=== PATIENT | female | born 1930 | race Caucasian/White ===

== ENCOUNTER 2017-05-29 20:24 | Emergency (ER) | payer OTHER, MEDICARE ==
[~2017-05-29] VITALS: Ht 160 cm; Wt 55.2 kg
[~2017-05-29 20:24] MED LIST: ALBU1AER INH; ALPR.25 PO; BENZ100 PO; CEFT500T3 PO; FAMO20TA2 PO; GABA100C4 PO; METR-1 PO; OXYGENTANK NAS.CANULA; POTA-163 PO; PROBCAP4 PO; PROT40TA PO; REST0.05 EACH EYE; RIVA10 PO; STOO100C PO; SYNT125T PO
[2017-05-29 20:27] VITALS: BP 147/64; PULSE 56; RESP 20; TEMP 98; O2SAT 95
[2017-05-29] MEDS ORDERED: LEVO.125 PO (20:47)
[2017-05-29] MEDS ORDERED: HYDR-4107 PO (20:47)
[2017-05-29] MEDS ORDERED: POTA-53 PO (20:47)
[2017-05-29] MEDS ORDERED: GABA300C5 PO (20:47)
[2017-05-29] MEDS ORDERED: PROT40TA PO (20:47)
[2017-05-29] MEDS ORDERED: ASPI81CH37 CHEW (20:47)
[2017-05-29] MEDS ORDERED: CALC500T35 (20:47)
[2017-05-29] MEDS ORDERED: FURO20TA PO (20:47)
[2017-05-29] MEDS ORDERED: CITA20TA4 PO (20:47)
[2017-05-29] MEDS ORDERED: AZIT250T3 PO (20:49)
[2017-05-29] MEDS ORDERED: LIDOCAINE HCL 1% PF 2 ML VIAL ONE (20:52)
[2017-05-29] MEDS ORDERED: LIDOCAINE HCL 1% PF 30 ML VIAL ONE (20:56)
--- NOTE | 2017-05-29 20:58 | PD ---
HPI Chief Complaint: Bite or Sting Time Seen by Provider: 20:49 Travel History International Travel<30 days: No Contact w/Intl Traveler<30days: No Traveled to known affect area: No History of Present Illness HPI 86-year-old female presents to the emergency room for evaluation of a laceration to her right fifth finger that occurred 7 hours prior to arrival. Patient was scratched by her pet cat. She applied a pressure dressing but the bleeding would not stop. She takes baby aspirin daily. She believes her last tetanus was less than one year ago when she got a hip replacement. PFSH Past Medical History Hx Anticoagulant Therapy: Yes (ASA) Arthritis: Yes Atrial Fibrillation: Yes Autoimmune Disease: No Blood Disorders: No Anxiety: Yes Heart Rhythm Problems: Yes (AFIB) Cancer: Yes (hx of ovarian cancer) Cardiac Catheterization: No Cardiovascular Problems: Yes High Cholesterol: Yes Chest Pain: Yes Congestive Heart Failure: Yes COPD: Yes Cerebrovascular Accident: No Diabetes: No Diminished Hearing: No Endocrine: Yes Gastrointestinal Disorders: Yes (H/O ACID REFLUX) GERD: Yes Genitourinary: No Headaches: Yes Hypertension: Yes Immune Disorder: No Implanted Vascular Access Dvce: Yes Medical other: Yes (PROLAPSED RECTUM) Musculoskeletal: Yes Neurologic: Yes Psychiatric: Yes Reproductive: Yes Respiratory: Yes Immunizations Current: Yes Thyroid Disease: Yes Triglycerides - High: Yes Menopausal: Yes Past Surgical History Body Medical Devices: lens implants Cholecystectomy: Yes Coronary Artery Bypass Graft: No Endocrine Surgery: Yes Eye Surgery: Yes (cathy cataract surgery) Gynecologic Surgery: Yes (hysterectomy, ) Hysterectomy: Yes Other Surgery: Yes Social History Alcohol Use: No Tobacco Use: No Substance Use: No Allergies-Medications (Allergen,Severity, Reaction): Coded Allergies: Codeine (Verified Allergy, Severe, NAUSEA, 05/29/17) Dilaudid (Verified Allergy, Severe, Itching, 05/29/17) Sulfa (Verified Allergy, Severe, EYE SWELLING, 05/29/17) *MDRO Multi-Drug Resistant Organism (Verified Adverse Reaction, Unknown, ) 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 Reported Meds & Prescriptions Reported Meds & Active Scripts Active Azithromycin 250 Mg Tab 250 Mg PO DAILY Xanax (Alprazolam) 0.25 Mg Tab 0.25 Mg PO HS Reported Hydrocodone-Acetaminophen 5-300 Mg Tab 1 Tab PO Q4H PRN Potassium Chloride 1 Pow Pow 10 Meq PO THREE TIMES A WEEK Furosemide 20 Mg Tab 20 Mg PO 3 TIMES WEEKLY Gabapentin 300 Mg Cap 300 Mg PO HS Calcium (Oyster Shell) 500 Mg Tab Unknown Dose BID Citalopram (Citalopram Hydrobromide) 20 Mg Tab 20 Mg PO DAILY Synthroid (Levothyroxine Sodium) 125 Mcg Tab 125 Mcg PO DAILY Aspirin Low Dose (Aspirin) 81 Mg Chew 81 Mg CHEW DAILY Protonix (Pantoprazole Sodium) 40 Mg Tab 40 Mg PO DAILY Review of Systems Except as stated in HPI: all other systems reviewed are Neg Physical Exam Narrative GENERAL: Well-nourished, well-developed female in no acute distress. Afebrile. Ambulatory. SKIN: Focused skin assessment warm/dry. There is a 1.5 cm well approximated laceration to the right fifth finger over the pulp space. There is a superficial vessel bleeding consistently. HEAD: Normocephalic. EYES: No scleral icterus. No injection or drainage. NECK: Supple, trachea midline. No JVD or lymphadenopathy. CARDIOVASCULAR: Regular rate and rhythm without murmurs, gallops, or rubs. RESPIRATORY: Breath sounds equal bilaterally. No accessory muscle use. MUSCULOSKELETAL: No cyanosis, or edema. Data Data Last Documented VS Vital Signs Date Time Temp Pulse Resp B/P Pulse Ox O2 Delivery O2 Flow Rate FiO2 05/29/17 20:27 98.0 56 20 147/64 95 Orders Azithromycin (Zithromax) (05/29/17 21:00) Lidocaine Pf 1% Inj (Xylocaine-Mpf 1% In (05/29/17 20:52) Lidocaine Pf 1% Inj (Xylocaine-Mpf 1% In (05/29/17 20:56) MDM Medical Decision Making Medical Screen Exam Complete: Yes Emergency Medical Condition: Yes Medical Record Reviewed: Yes Differential Diagnosis laceration, cat scratch fever, abrasion, skin tear Narrative Course 86-year-old female presents to the emergency room for evaluation of a cat scratch to the right fifth finger. There is 1.5 cm well-approximated laceration to the right fifth finger that is persistently bleeding. The wound was thoroughly irrigated and it loosely repaired with sutures to control bleeding but allow for infection to exit the wound. The remainder of the wound was left open. Patient was given 500 mg azithromycin in the emergency room and discharged with prescription for the same. She was told to follow up with her primary care physician or return for worsening symptoms. She understands and agrees to plan.. Procedures Procedure Narrative LACERATION LOCATION: Right fifth finger LENGTH: 1.5 cm NUMBER OF STITCHES/KITTY: 2 simple interrupted, 2 simple interrupted buried REPAIR: The area of the laceration was prepped with Betadine and sterilely draped. The laceration was infiltrated with 1% lidocaine with epinephrine. The wound was copiously irrigated and explored without evidence of foreign body , tendon injury or neurovascular injury. The wound was closed using 5-0 Vicryl and 5-0 Prolene. This was a double layer repair. A sterile dressing was applied. The patient was advised to keep the dressing clean and dry. Patient tolerated the procedure well. Diagnosis Primary Impression: Laceration of right little finger Qualified Code: S61.216A - Laceration of right little finger without foreign body without damage to nail, initial encounter Referrals: Primary Care Physician Patient Instructions: Finger Laceration (ED), General Instructions Additional Instructions: Rest and drink plenty of fluids. Keep wound clean and dry. Apply triple antibiotic ointment daily. Take azithromycin as directed, until gone. Follow-up with a primary care physician. Return to the emergency room for worsening symptoms. Med/Other Pt SpecificInfo: Prescription(s) given Scripts Azithromycin 250 Mg [id number] Mg PO DAILY #4 TAB Ref 0 Prov:Dania Stroud DO 05/29/17 Disposition: 01 DISCHARGE HOME Condition: Stable Suha Brunner May 29, 2017 20:58
[2017-05-29] MEDS ORDERED: AZITHROMYCIN 250 MG TAB PO ONE (21:00)
[2017-05-29] MEDS ORDERED: LIDOCAINE HCL 1% PF 30 ML VIAL INFIL ONE (21:45)
== END 2017-05-29 21:50 | disposition home or self-care (01) ==
LOC: PHEFT 20:24
DX: S61.216A Laceration without foreign body of right little finger without damage to nail, initial encounter (principal); W55.03XA Scratched by cat, initial encounter
CPT/HCPCS: 12041

== ENCOUNTER 2017-07-28 20:25 | Observation (INO) | payer OTHER ==
[~2017-07-28] VITALS: Ht 157.5 cm; Wt 55.0 kg
[~2017-07-28 20:25] MED LIST changes: -ALBU1AER INH; +ASPI81CH37 CHEW; +AZIT250T3 PO; -BENZ100 PO; +CALC500T35; -CEFT500T3 PO; +CITA20TA4 PO; -FAMO20TA2 PO; +FURO20TA PO; -GABA100C4 PO; +GABA300C5 PO; +HYDR-4107 PO; +LEVO.125 PO; -METR-1 PO; -OXYGENTANK NAS.CANULA; -POTA-163 PO; +POTA-53 PO; -PROBCAP4 PO; -REST0.05 EACH EYE; -RIVA10 PO; -STOO100C PO; -SYNT125T PO
[2017-07-28 20:31] VITALS: BP 159/58; PULSE 92; RESP 22; TEMP 100; O2SAT 97
--- NOTE | 2017-07-28 20:41 | PD ---
HPI Chief Complaint: Fever Time Seen by Provider: 20:36 Travel History International Travel<30 days: No Contact w/Intl Traveler<30days: No Traveled to known affect area: No History of Present Illness HPI 87-year-old female brought in by ambulance from home for evaluation of fever, lower back pain, bilateral flank pain, and epigastric abdominal pain. Symptoms started today. The patient felt nauseous and was given IV Zofran by EMS with improvement in symptoms. History of appendectomy and cholecystectomy. Currently she is denying abdominal pain. No chest pain. PFSH Past Medical History Hx Anticoagulant Therapy: Yes (ASA) Arthritis: Yes Atrial Fibrillation: Yes Autoimmune Disease: No Blood Disorders: No Anxiety: Yes Heart Rhythm Problems: Yes (AFIB) Cancer: Yes (hx of ovarian cancer) Cardiac Catheterization: No Cardiovascular Problems: Yes High Cholesterol: Yes Chest Pain: Yes Congestive Heart Failure: Yes COPD: Yes Cerebrovascular Accident: No Diabetes: No Diminished Hearing: No Endocrine: Yes Gastrointestinal Disorders: Yes (H/O ACID REFLUX) GERD: Yes Genitourinary: No Headaches: Yes Hypertension: Yes Immune Disorder: No Implanted Vascular Access Dvce: Yes Musculoskeletal: Yes Neurologic: Yes Psychiatric: Yes Reproductive: Yes Respiratory: Yes Immunizations Current: Yes Thyroid Disease: Yes Triglycerides - High: Yes ?: Not Menopausal: Yes Past Surgical History Body Medical Devices: lens implants Cholecystectomy: Yes Coronary Artery Bypass Graft: No Endocrine Surgery: Yes Eye Surgery: Yes (cathy cataract surgery) Gynecologic Surgery: Yes (hysterectomy, ) Hysterectomy: Yes Other Surgery: Yes Social History Alcohol Use: No Tobacco Use: No Substance Use: No Allergies-Medications (Allergen,Severity, Reaction): Coded Allergies: Sulfa (Sulfonamide Antibiotics) (Unverified Allergy, Severe, EYE SWELLING , 07/08/17) codeine (Unverified Allergy, Severe, NAUSEA, 07/08/17) hydromorphone (Unverified Allergy, Severe, Itching, 07/08/17) *MDRO Multi-Drug Resistant Organism (Verified Adverse Reaction, Unknown, ) 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 Reported Meds & Prescriptions Reported Meds & Active Scripts Active Azithromycin 250 Mg Tab 250 Mg PO DAILY Xanax (Alprazolam) 0.25 Mg Tab 0.25 Mg PO HS Reported Hydrocodone-Acetaminophen 5-300 Mg Tab 1 Tab PO Q4H PRN Potassium Chloride 1 Pow Pow 10 Meq PO THREE TIMES A WEEK Furosemide 20 Mg Tab 20 Mg PO 3 TIMES WEEKLY Gabapentin 300 Mg Cap 300 Mg PO HS Calcium (Oyster Shell) 500 Mg Tab Unknown Dose BID Citalopram (Citalopram Hydrobromide) 20 Mg Tab 20 Mg PO DAILY Synthroid (Levothyroxine Sodium) 125 Mcg Tab 125 Mcg PO DAILY Aspirin Low Dose (Aspirin) 81 Mg Chew 81 Mg CHEW DAILY Protonix (Pantoprazole Sodium) 40 Mg Tab 40 Mg PO DAILY Review of Systems Except as stated in HPI: all other systems reviewed are Neg Physical Exam Narrative GENERAL: Well-developed, well-nourished, awake, alert, no apparent distress. SKIN: Focused skin assessment warm/dry. No rashes. HEAD: Atraumatic. Normocephalic. EYES: Pupils equal and round. No scleral icterus. No injection or drainage. ENT: Mucous membranes pink and moist. NECK: Trachea midline. No JVD. No nuchal rigidity. CARDIOVASCULAR: Regular rate and rhythm. No murmur appreciated. RESPIRATORY: No accessory muscle use. Clear to auscultation. Breath sounds equal bilaterally. GASTROINTESTINAL: Abdomen soft, non-tender, nondistended. MUSCULOSKELETAL: No obvious deformities. No clubbing. No cyanosis. No edema. NEUROLOGICAL: Awake and alert. No obvious cranial nerve deficits. Motor grossly within normal limits. Normal speech. PSYCHIATRIC: Appropriate mood and affect; insight and judgment normal. Data Data Last Documented VS Vital Signs Date Time Temp Pulse Resp B/P (MAP) Pulse Ox O2 Delivery O2 Flow Rate FiO2 07/29/17 00:03 98.3 62 20 101/49 (66) 98 Nasal Cannula 2.00 Orders Orders Electrocardiogram (07/28/17 20:36) Complete Blood Count With Diff (07/28/17 20:36) Comprehensive Metabolic Panel (07/28/17 20:36) Lactic Acid Sepsis Protocol (07/28/17 20:36) Ckmb (Isoenzyme) Profile (07/28/17 20:36) Troponin I (07/28/17 20:36) Urinalysis - C+S If Indicated (07/28/17 20:36) Blood Culture (07/28/17 20:36) Chest, Single Ap (07/28/17 20:36) Ecg Monitoring (07/28/17 20:36) Iv Access Insert/Monitor (07/28/17 20:36) Oximetry (07/28/17 20:36) Acetaminophen (Tylenol) (07/28/17 20:45) Ct Abd/Pel W Iv Contrast(Rout) (07/28/17 20:36) Lipase (07/28/17 20:36) Iohexol 350 Inj (Omnipaque 350 Inj) (07/28/17 23:16) Piperacil-Tazo 3.375 Gm Premix (Zosyn 3. (07/28/17 23:45) Labs Laboratory Tests Test 07/28/17 20:35 07/28/17 20:49 White Blood Count 6.2 TH/MM3 Red Blood Count 3.54 MIL/MM3 Hemoglobin 10.7 GM/DL Hematocrit 32.6 % Mean Corpuscular Volume 92.2 FL Mean Corpuscular Hemoglobin 30.2 PG Mean Corpuscular Hemoglobin Concent 32.7 % Red Cell Distribution Width 14.1 % Platelet Count 154 TH/MM3 Mean Platelet Volume 7.0 FL Neutrophils (%) (Auto) 90.3 % Lymphocytes (%) (Auto) 3.3 % Monocytes (%) (Auto) 5.8 % Eosinophils (%) (Auto) 0.3 % Basophils (%) (Auto) 0.3 % Neutrophils # (Auto) 5.6 TH/MM3 Lymphocytes # (Auto) 0.2 TH/MM3 Monocytes # (Auto) 0.4 TH/MM3 Eosinophils # (Auto) 0.0 TH/MM3 Basophils # (Auto) 0.0 TH/MM3 CBC Comment DIFF FINAL Differential Comment Blood Urea Nitrogen 16 MG/DL Creatinine 0.82 MG/DL Random Glucose 98 MG/DL Total Protein 6.0 GM/DL Albumin 2.9 GM/DL Calcium Level 8.1 MG/DL Alkaline Phosphatase 268 U/L Aspartate Amino Transf (AST/SGOT) 215 U/L Alanine Aminotransferase (ALT/SGPT) 255 U/L Total Bilirubin 2.3 MG/DL Sodium Level 143 MEQ/L Potassium Level 3.1 MEQ/L Chloride Level 109 MEQ/L Carbon Dioxide Level 25.5 MEQ/L Anion Gap 9 MEQ/L Estimat Glomerular Filtration Rate 66 ML/MIN Lactic Acid Level 1.5 mmol/L Total Creatine Kinase 30 U/L Troponin I LESS THAN 0.02 NG/ML Lipase 196 U/L Urine Color YELLOW Urine Turbidity CLEAR Urine pH 6.5 Urine Specific [place] 1.021 Urine Protein TRACE mg/dL Urine Glucose (UA) NEG mg/dL Urine Ketones TRACE mg/dL Urine Occult Blood SMALL Urine Nitrite NEG Urine Bilirubin NEG Urine Urobilinogen 2.0 MG/DL Urine Leukocyte Esterase NEG Urine RBC 10 /hpf Urine WBC 1 /hpf Urine Squamous Epithelial Cells <1 /hpf Urine Mucus FEW /lpf Microscopic Urinalysis Comment CATH-CULT NOT IND MDM Medical Decision Making Medical Screen Exam Complete: Yes Emergency Medical Condition: Yes Medical Record Reviewed: Yes Differential Diagnosis Sepsis, UTI, pyelonephritis, colitis, intra-abdominal infectious process, pneumonia, ACS Narrative Course Vital signs show heart rate 92, blood pressure 159/58, pulse ox 97% on room air , oral temp of 100F. CBC shows WBC 6.2, hemoglobin 10.7, hematocrit 32.6, platelets 154, neutrophils 90.3%. CMP is remarkable for potassium 3.1, T bili 2.3, AST 2:15, ALT 255, alkaline phosphatase 268. Lactic acid is 1.5. Lipase is 196. Cardiac enzymes are negative. UA is not suggestive of UTI. CT abdomen pelvis: CONCLUSION: 1. Status post cholecystectomy with prominent extrahepatic and mild intrahepatic ductal dilatation extending to the ampulla. Although post cholecystectomy reservoir effect may result in some extrahepatic ductal dilatation, overall degree of ductal prominence is atypical. Further evaluation may be performed with ERCP or MRCP as clinically warranted. 2. Prominent sigmoid diverticulosis with subtle perisigmoid inflammatory change , likely chronic. Differential considerations include developing diverticulitis. No abscess or perforation. 3. Small fat-containing periumbilical hernia with subtle stranding of the fat. Clinical correlation for strangulated hernia is recommended. Patient does have fever. She likely has an ascending cholangitis given CT findings, elevated LFTs, elevated bilirubin. She was started on Zosyn. She will be admitted for further treatment and evaluation. Case discussed with hospitalist Dr. White who will admit the patient to his service for further treatment and evaluation and likely GI consultation. Diagnosis Primary Impression: Biliary obstruction Additional Impressions: Hyperbilirubinemia Transaminitis Admitting Information Admitting Physician Requests: Admit Allen Ratliff MD Jul 28, 2017 20:41
[2017-07-28] MEDS ORDERED: ACETAMINOPHEN 325 MG TAB PO ONE (20:45)
[2017-07-28 20:53] VITALS: O2SAT 97
[2017-07-28 21:26] LABS: AUTOMATED NEUTROPHIL # 5.6 TH/MM3 (1.8-7.7); BASOPHIL % 0.3 % (0.0-2.0); EOSINOPHIL % 0.3 % (0.0-4.0); HEMATOCRIT 32.6 % (35.0-46.0); HEMO FLAGS DIFF FINAL; LYMPH % 3.3 % (9.0-44.0); LYMPHOCYTE # 0.2 TH/MM3 (1.0-4.8); MEAN CELL VOLUME 92.2 FL (80.0-100.0); MEAN CORPUSCULAR HEMOGLOBIN 30.2 PG (27.0-34.0); MEAN CORPUSCULAR HGB CONC 32.7 % (32.0-36.0); MONO % 5.8 % (0.0-8.0); NEUT % 90.3 % (16.0-70.0); PLATELET COUNT 154 TH/MM3 (150-450); RED BLOOD COUNT 3.54 MIL/MM3 (4.00-5.30); RED CELL DISTRIBUTION WIDTH 14.1 % (11.6-17.2); WHITE BLOOD COUNT 6.2 TH/MM3 (4.0-11.0)
[2017-07-28 21:27] LABS: BLOOD, URINE SMALL (NEG); GLUCOSE,URINE NEG (NEG); KETONE, URINE TRACE mg/dL (NEG); MUCUS URINE FEW /lpf (OCC); NITRITE,URINE NEG (NEG); PH, URINE 6.5 (5.0-8.5); SQUAMOUS EPITHELIAL CELL URINE <1 /hpf (0-5); URINE COLOR YELLOW (YELLW/STRAW)
[2017-07-28 21:28] LABS: COMMENT (UR) CATH-CULT NOT IND; CULTURE IF INDICATED CATH CULTURE NOT IND
--- NOTE | 2017-07-28 21:34 | RADRPT ---
EXAM DATE/TIME: 07/28/2017 21:03 [facility] COMPARISON: CHEST SINGLE AP, October 03, 2016, 2:37. CHEST SINGLE AP, October 04, 2016, 2:26. INDICATIONS : Fever MEDICAL HISTORY : Hypertension. Chronic obstructive pulmonary disease. Congestive heart SURGICAL HISTORY : ENCOUNTER: Initial ACUITY: 1 day PAIN SCORE: 0/10 LOCATION: chest FINDINGS: A single view of the chest demonstrates the lungs to be symmetrically aerated without evidence of mas s, infiltrate or effusion. The cardiomediastinal contours are unremarkable. Atherosclerotic changes are present in the aorta. There are benign electrocardiogram leads and oxygen tubing. Osseous struct ures are intact. CONCLUSION: No acute disease. There is no evidence of pneumonia. Toni Fuentes MD on July 28, 2017 at 21:31 Board Certified Radiologist. This report was verified electronically.
[2017-07-28 21:42] LABS: ANION GAP 9 MEQ/L (5-15); AST (GOT) 215 U/L (15-37); BICARBONATE 25.5 MEQ/L (21.0-32.0); BLOOD UREA NITROGEN 16 MG/DL (7-18); CHLORIDE 109 MEQ/L (98-107); GLOMERULAR FILTRATION RATE 66 ML/MIN (>89); POTASSIUM 3.1 MEQ/L (3.5-5.1); SODIUM (NA) 143 MEQ/L (136-145)
[2017-07-28 21:47] LABS: ALKALINE PHOSPHATASE 268 U/L (45-117); ALT (GPT) 255 U/L (10-53); TOTAL BILIRUBIN ADULT 2.3 MG/DL (0.2-1.0)
[2017-07-28 22:08] LABS: CREATINE KINASE 30 U/L (26-192)
[2017-07-28] MEDS ORDERED: IOHEXOL 350 MG/ML 10 ML VIAL (for RAD DIAG) IVCONTRAST ONE (23:16)
--- NOTE | 2017-07-28 23:38 | RADRPT ---
EXAM DATE/TIME: 07/28/2017 23:06 [facility] COMPARISON: CT ABDOMEN & PELVIS W/O CONTRAST, January 28, 2010, 16:31. INDICATIONS : Diffuse abdominal pain. IV CONTRAST: 75 cc Omnipaque 350 (iohexol) IV ORAL CONTRAST: No oral contrast ingested. RADIATION DOSE: 8.75 CTDIvol (mGy) MEDICAL HISTORY : Cardiovascular disease. Chronic obstructive pulmonary disease. Hypertension.Ovarian cancer. SURGICAL HISTORY : Cholecystectomy. Hysterectomy.Left hip surgery. ENCOUNTER: Initial ACUITY: 1 day PAIN SCALE: 6/10 LOCATION: Bilateral abdomen TECHNIQUE: Volumetric scanning of the abdomen and pelvis was performed. Using automated exposure control and ad justment of the mA and/or kV according to patient size, radiation dose was kept as low as reasonably achievable to obtain optimal diagnostic quality images. DICOM format image data is available electro nically for review and comparison. FINDINGS: LOWER LUNGS: Bibasilar airspace disease, likely atelectasis. LIVER: Liver demonstrates diffusely normal density without evidence for volume loss. There is a 1.4 cm cyst in the anterior segment 5 of the liver. Gallbladder is surgically absent. There is diffuse intra-and extrahepatic ductal dilatation extending to the region of the ampulla. The common bile duct measures up to 1.4 cm. SPLEEN: Normal size without lesion. PANCREAS: Prominence of the central pancreatic duct. Pancreas otherwise appears grossly unremarkable. Within no rmal limits. KIDNEYS: Symmetrical enhancement without evidence for radiopaque calculi or hydronephrosis. Stable subcentimet er cystic lesion in the superior pole of the left kidney which is too small to fully characterize. ADRENAL GLANDS: Within normal limits. VASCULAR: Atherosclerotic calcifications of the bowel aorta which appears non-aneurysmal. BOWEL/MESENTERY: Moderate severe sigmoid diverticulosis. Scattered moderate colonic diverticula in the remaining porti ons of the colon. Subtle perisigmoid stranding. Bowel otherwise appears unremarkable. No evidence for obstruction. ABDOMINAL WALL: Small fat-containing periumbilical intra-abdominal wall hernia. There is subtle stranding of the fat within this hernia. RETROPERITONEUM: There is no lymphadenopathy. BLADDER: No wall thickening or mass. REPRODUCTIVE: Uterus is surgically absent. INGUINAL: There is no lymphadenopathy or hernia. MUSCULOSKELETAL: Left femoral fixation hardware in place. Within normal limits for patient age. CONCLUSION: 1. Status post cholecystectomy with prominent extrahepatic and mild intrahepatic ductal dilatation ex tending to the ampulla. Although post cholecystectomy reservoir effect may result in some extrahepati c ductal dilatation, overall degree of ductal prominence is atypical. Further evaluation may be perfo rmed with ERCP or MRCP as clinically warranted. 2. Prominent sigmoid diverticulosis with subtle perisigmoid inflammatory change, likely chronic. Diff erential considerations include developing diverticulitis. No abscess or perforation. 3. Small fat-containing periumbilical hernia with subtle stranding of the fat. Clinical correlation f or strangulated hernia is recommended. Ry Gutierrez MD on July 28, 2017 at 23:26 Board Certified Radiologist. This report was verified electronically.
[2017-07-28] MEDS ORDERED: PIPERACIL-TAZO 3.375 GM PREMIX 50 ML IV ONE (23:45)
[2017-07-29] VITALS (8 sets, daily range): BP systolic 101–125; BP diastolic 49–60; PULSE 51–62; RESP 15–20; TEMP 98–98.4; O2SAT 94–98
[2017-07-29] MEDS ORDERED: SODIUM CHLORIDE 0.9% FLUSH 10 ML FLUSH IV FLUSH PRN (01:45)
[2017-07-29] MEDS ORDERED: NALOXONE HCL 0.4 MG/ML AMP IV PRN (01:45)
[2017-07-29] MEDS ORDERED: ONDANSETRON HCL 4 MG/2 ML VIAL IVP PRN (01:45)
[2017-07-29] MEDS ORDERED: ACETAMINOPHEN 325 MG TAB PO PRN (01:45)
[2017-07-29] MEDS: SODIUM CHLORIDE 0.9% FLUSH 10 ML FLUSH IV FLUSH SCH ×2 (09:24→21:10)
[2017-07-29] MEDS ORDERED: Vancomycin Consult Pharmacy 1 EA OTHER SCH (10:00)
[2017-07-29] MEDS ORDERED: PIPERACIL-TAZO 4.5 GM PREMIX 100 ML IV SCH (11:00)
[2017-07-29] MEDS: VANCOMYCIN 1,000 MG/NS 250 ML IV SCH ×2 (11:48)
--- NOTE | 2017-07-29 13:47 | EKG ---
Date Performed: 07/28/2017 Time Performed: 20:45:02 PTAGE: 87 years EKG: Sinus rhythm INFERIOR MYOCARDIAL INFARCTION MODERATE T-WAVE ABNORMALITY, CONSIDER LATERAL ISCHEMIA ABNORMAL ECG C ompared to prior tracing no significant change PREVIOUS TRACING : 10/02/2016 03.55 DOCTOR: Fahad Carias Interpretating Date/Time 07/29/2017 13:45:43
[2017-07-29] MEDS ORDERED: POTASSIUM CHLORIDE 25 MEQ EFFERVESCENT TAB PO ONE (14:30)
[2017-07-29] MEDS ORDERED: ACETAMINOPHEN/HYDROcodone 325 MG/5 MG TAB PO PRN (14:30)
--- NOTE | 2017-07-29 14:35 | HHI.HP ---
[facility] Unknown Admission Diagnosis biliary obstruction, hyperbilirubinemia, transaminitis Diagnoses: Chief Complaint: Abdominal pain Travel History International Travel<30 Days: No Contact w/Intl Traveler <30 Da: No Traveled to Known Affected Are: No History of Present Illness The patient is an 87-year-old female with a past medical history of ovarian cancer and CHF who is presenting to the hospital with abdominal pain. She says that 2 weeks ago she started to develop abdominal pain. The pain is located in the center of her stomach but would radiate up to the lower part of her chest. She said she thought she was having a heart attack. She said she was unsure of what made the pain come and go. She did have some associated nausea and vomiting. She also had high fevers a few times over the past couple of weeks. She says the high she remembers is 102 point something. She went to see her primary care doctor. She said she had a liver ultrasound done which was negative. She had blood work done as well and was supposed to follow up with her doctor soon but the pain became so bad she had to come to the hospital. She says her symptoms have currently subsided. She has been tolerating a diet without difficulty. She does endorse normal bowel movements recently. 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 Ordered Medications Current Medications Medications (Trade) Dose Ordered Sig/Andrew Route Start Time Stop Time Status Last Admin (NS Flush) 2 ml UNSCH PRN IV FLUSH 07/29/17 01:45 (NS Flush) 2 ml BID IV FLUSH 07/29/17 09:00 07/29/17 09:24 (Tylenol) 650 mg Q4H PRN PO 07/29/17 01:45 (Zofran Inj) 4 mg Q6H PRN IVP 07/29/17 01:45 (Narcan Inj) 0.4 mg UNSCH PRN IV 07/29/17 01:45 Pharmacy Profile Note 0 ml @ 0 mls/hr UNSCH OTHER 07/29/17 10:00 Piperacillin Sod/ Tazobactam Sod 50 ml @ 100 mls/hr Q6H IV 07/29/17 17:00 Vancomycin HCl 1000 mg/Sodium Chloride 250 ml @ 250 mls/hr Q24H IV 07/29/17 12:00 07/29/17 11:48 Miscellaneous Information SPECIFIC LAB TO BE DRAWN:VANCOMYCIN TROUGH DATE TO... ONCE ONCE .XX 08/01/17 11:45 08/01/17 11:46 (Xanax) 0.25 mg HS PO 07/29/17 21:00 UNV (CeleXA) 20 mg DAILY PO 07/29/17 14:00 UNV (Neurontin) 300 mg HS PO 07/29/17 21:00 UNV (Synthroid) 125 mcg DAILY PO 07/29/17 14:00 UNV (Protonix) 40 mg DAILY PO 07/29/17 14:00 UNV Family History Lung cancer Brain hemorrhage CAD Social History The does not smoke or drink. She lives with her daughter. Physical Exam Vital Signs Vital Signs Date Time Temp Pulse Resp B/P (MAP) Pulse Ox O2 Delivery O2 Flow Rate FiO2 07/29/17 13:33 54 07/29/17 11:50 98.3 51 16 108/51 (70) 95 07/29/17 07:14 98.1 52 15 108/53 (71) 95 07/29/17 04:28 98.3 51 16 114/57 (76) 95 07/29/17 03:24 07/29/17 00:03 98.3 62 20 101/49 (66) 98 Nasal Cannula 2.00 07/28/17 20:53 97 3.00 07/28/17 20:31 100.0 92 22 159/58 (91) 97 Physical Exam GENERAL: Well-developed, well-nourished, NAD. SKIN: Focused skin assessment warm/dry. No rashes. HEAD: Atraumatic. Normocephalic. EYES: Pupils equal and round. No scleral icterus. No injection or drainage. ENT: Mucous membranes pink and moist. NECK: Trachea midline. No JVD. No nuchal rigidity. CARDIOVASCULAR: Regular rate and rhythm. No murmur appreciated. RESPIRATORY: No accessory muscle use. Clear to auscultation. Breath sounds equal bilaterally. GASTROINTESTINAL: Abdomen soft, non-tender, nondistended. MUSCULOSKELETAL: No obvious deformities. No clubbing. No cyanosis. No edema. NEUROLOGICAL: Awake and alert. No obvious cranial nerve deficits. Motor grossly within normal limits. Normal speech. PSYCHIATRIC: Appropriate mood and affect; insight and judgment normal. Laboratory Laboratory Tests Test 07/28/17 20:35 07/28/17 20:49 White Blood Count 6.2 Red Blood Count 3.54 Hemoglobin 10.7 Hematocrit 32.6 Mean Corpuscular Volume 92.2 Mean Corpuscular Hemoglobin 30.2 Mean Corpuscular Hemoglobin Concent 32.7 Red Cell Distribution Width 14.1 Platelet Count 154 Mean Platelet Volume 7.0 Neutrophils (%) (Auto) 90.3 Lymphocytes (%) (Auto) 3.3 Monocytes (%) (Auto) 5.8 Eosinophils (%) (Auto) 0.3 Basophils (%) (Auto) 0.3 Neutrophils # (Auto) 5.6 Lymphocytes # (Auto) 0.2 Monocytes # (Auto) 0.4 Eosinophils # (Auto) 0.0 Basophils # (Auto) 0.0 CBC Comment DIFF FINAL Differential Comment Blood Urea Nitrogen 16 Creatinine 0.82 Random Glucose 98 Total Protein 6.0 Albumin 2.9 Calcium Level 8.1 Alkaline Phosphatase 268 Aspartate Amino Transf (AST/SGOT) 215 Alanine Aminotransferase (ALT/SGPT) 255 Total Bilirubin 2.3 Sodium Level 143 Potassium Level 3.1 Chloride Level 109 Carbon Dioxide Level 25.5 Anion Gap 9 Estimat Glomerular Filtration Rate 66 Lactic Acid Level 1.5 Total Creatine Kinase 30 Troponin I LESS THAN 0.02 Lipase 196 Urine Color YELLOW Urine Turbidity CLEAR Urine pH 6.5 Urine Specific [place] 1.021 Urine Protein TRACE Urine Glucose (UA) NEG Urine Ketones TRACE Urine Occult Blood SMALL Urine Nitrite NEG Urine Bilirubin NEG Urine Urobilinogen 2.0 Urine Leukocyte Esterase NEG Urine RBC 10 Urine WBC 1 Urine Squamous Epithelial Cells <1 Urine Mucus FEW Microscopic Urinalysis Comment CATH-CULT NOT IND Date/Time Source Procedure Growth Status 07/29/17 13:00 Blood Peripheral Aerobic Blood Culture Pending Received 07/29/17 13:00 Blood Peripheral Anaerobic Blood Culture Pending Received Result Diagram: 07/28/17203407/28/172034 Imaging Last Impressions Chest X-Ray 07/28/172035 Signed Impressions: Service Date/Time: Friday, July 28, 2017 21:03 - CONCLUSION: No acute disease. There is no evidence of pneumonia. Toni Fuentes MD Abdomen/Pelvis CT 07/28/172035 Signed Impressions: Service Date/Time: Friday, July 28, 2017 23:06 - CONCLUSION: 1. Status post cholecystectomy with prominent extrahepatic and mild intrahepatic ductal dilatation extending to the ampulla. Although post cholecystectomy reservoir effect may result in some extrahepatic ductal dilatation, overall degree of ductal prominence is atypical. Further evaluation may be performed with ERCP or MRCP as clinically warranted. 2. Prominent sigmoid diverticulosis with subtle perisigmoid inflammatory change, likely chronic. Differential considerations include developing diverticulitis. No abscess or perforation. 3. Small fat-containing periumbilical hernia with subtle stranding of the fat. Clinical correlation for strangulated hernia is recommended. MD Radha Carr VTE Risk Assessment Gautamrini VTE Risk Assessment: Mod/High Risk (score >= 2) Caprini Risk Assessment Model Point Value = 1 Point Value = 2 Point Value = 3 Point Value = 5 Age 41-60 Minor surgery BMI > 25 kg/m2 Swollen legs Varicose veins or History of unexplained or recurrent spontaneous Oral contraceptives or hormone replacement Sepsis (< 1 month) Serious lung disease, including pneumonia (< 1 month) Abnormal pulmonary function Acute myocardial infarction Congestive heart failure (< 1 month) History of inflammatory bowel disease Medical patient at bed rest Age 61-74 Arthroscopic surgery Major open surgery (> 45 min) Laparoscopic surgery (> 45 min) Malignancy Confined to bed (> 72 hours) Immobilizing plaster cast Central venous access Age >= 75 History of VTE Family history of VTE Factor V Leiden Prothrombin [id number] Lupus anticoagulant Anticardiolipin antibodies Elevated serum homocysteine Heparin-induced thrombocytopenia Other congenital or acquired thrombophilia Stroke (< 1 month) Elective arthroplasty Hip, pelvis, or leg fracture Acute spinal cord injury (< 1 month) Prophylaxis Regimen Total Risk Factor Score Risk Level Prophylaxis Regimen 0-1 Low Early ambulation 2 Moderate Order ONE of the following: *Sequential Compression Device (SCD) *Heparin 5000 units SQ BID 3-4 Higher Order ONE of the following medications: *Heparin 5000 units SQ TID *Enoxaparin/Lovenox 40 mg SQ daily (WT < 150 kg, CrCl > 30 mL/min) *Enoxaparin/Lovenox 30 mg SQ daily (WT < 150 kg, CrCl > 10-29 mL/min) *Enoxaparin/Lovenox 30 mg SQ BID (WT < 150 kg, CrCl > 30 mL/min) AND/OR *Sequential Compression Device (SCD) 5 or more Highest Order ONE of the following medications: *Heparin 5000 units SQ TID (Preferred with Epidurals) *Enoxaparin/Lovenox 40 mg SQ daily (WT < 150 kg, CrCl > 30 mL/min) *Enoxaparin/Lovenox 30 mg SQ daily (WT < 150 kg, CrCl > 10-29 mL/min) *Enoxaparin/Lovenox 30 mg SQ BID (WT < 150 kg, CrCl > 30 mL/min) AND *Sequential Compression Device (SCD) Assessment and Plan Assessment and Plan Ascending cholangitis/ Bacteremia The pt has had abdominal pain over the past two weeks associated with N/V and fever. She has elevated LFTs. CT of the abdomen revealed: Status post cholecystectomy with prominent extrahepatic and mild intrahepatic ductal dilatation extending to the ampulla; Although post cholecystectomy reservoir effect may result in some extrahepatic ductal dilatation, overall degree of ductal prominence is atypical; Prominent sigmoid diverticulosis with subtle perisigmoid inflammatory change, likely chronic; Small fat-containing periumbilical hernia with subtle stranding of the fat. Blood culture positive for GPR. - continue vancomycin and Zosyn. - GI evaluation requested. - Consider MRCP vs ERCP. - pain control as needed. - follow LFTs. - PPI. - repeat blood cultures pending. Hypokalemia S/t decreased PO intake. - replete and monitor. CHF Volume status seems stable. - Lasix on hold. - monitor Is and Os. HTN BP slightly elevated. - Vasotec as needed. PPx: Lovenox Code Status Full Discussed Condition With Pt Physician Certification 2 Midnight Certification Type: Admission for Inpatient Services Order for Inpatient Services The services are ordered in accordance with Medicare regulations or non- Medicare payer requirements, as applicable. In the case of services not specified as inpatient-only, they are appropriately provided as inpatient services in accordance with the 2-midnight benchmark. Estimated LOS (days): 2 days is the estimated time the patient will need to remain in the hospital, assuming treatment plan goals are met and no additional complications. Post-Hospital Plan: Home Toni Rendon DO Jul 29, 2017 14:35
[2017-07-29] MEDS: ASPIRIN 81 MG CHEW TAB CHEW SCH (16:43)
[2017-07-29] MEDS: PANTOPRAZOLE SOD 40 MG DELAYED RELEASE TAB PO SCH (16:43)
[2017-07-29] MEDS: CITALOPRAM HYDROBROMIDE 20 MG TAB PO SCH (16:44)
[2017-07-29] MEDS: PIPERACIL-TAZO 3.375 GM PREMIX 50 ML IV SCH ×2 (16:48→23:51)
[2017-07-29] MEDS ORDERED: ENOXAPARIN SODIUM 30 MG/0.3 ML SYRINGE SQ SCH (17:00)
[2017-07-29 20:13] LABS: ALT (GPT) 200 U/L (10-53); ANION GAP 6 MEQ/L (5-15); AST (GOT) 133 U/L (15-37); BICARBONATE 28.4 MEQ/L (21.0-32.0); BLOOD UREA NITROGEN 13 MG/DL (7-18); CHLORIDE 105 MEQ/L (98-107); GLOMERULAR FILTRATION RATE 58 ML/MIN (>89); POTASSIUM 3.3 MEQ/L (3.5-5.1); SODIUM (NA) 139 MEQ/L (136-145)
[2017-07-29 20:16] LABS: ALKALINE PHOSPHATASE 221 U/L (45-117)
[2017-07-29] MEDS: GABAPENTIN 300 MG CAP PO SCH (21:09)
[2017-07-29] MEDS: ALPRAZolam 0.25 MG TAB PO SCH (21:09)
--- NOTE | 2017-07-29 21:36 | PD.CONS ---
HPI History of Present Illness This is a 87 year old with two week history of epigastric aching pain that is moderate to severe in severity. Constant. Worsening brought her to hospital for admission. LFTs have been elevated. She has history of cholecystectomy. She reports occasional fever at home. CT in ED shows bile duct dilatation. ROS : No earache, sore throat, SOB, hematemesis or melena. Otherwise complete ros is negative. PFSH Past Medical History Hypertension COPD CHF Hypothyroidism History of ovarian cancer in 1965 GERD Past Surgical History Cholecystectomy Hysterectomy Coded Allergies: Sulfa (Sulfonamide Antibiotics) (Unverified Allergy, Severe, EYE SWELLING , 07/08/17) codeine (Unverified Allergy, Severe, NAUSEA, 07/08/17) hydromorphone (Unverified Allergy, Severe, Itching, 07/08/17) Medications Current Medications Medications (Trade) Dose Ordered Sig/Andrew Route Start Time Stop Time Status Last Admin (NS Flush) 2 ml UNSCH PRN IV FLUSH 07/29/17 01:45 (NS Flush) 2 ml BID IV FLUSH 07/29/17 09:00 07/29/17 21:10 (Tylenol) 650 mg Q4H PRN PO 07/29/17 01:45 (Zofran Inj) 4 mg Q6H PRN IVP 07/29/17 01:45 (Narcan Inj) 0.4 mg UNSCH PRN IV 07/29/17 01:45 Pharmacy Profile Note 0 ml @ 0 mls/hr UNSCH OTHER 07/29/17 10:00 Piperacillin Sod/ Tazobactam Sod 50 ml @ 100 mls/hr Q6H IV 07/29/17 17:00 07/29/17 16:48 Vancomycin HCl 1000 mg/Sodium Chloride 250 ml @ 250 mls/hr Q24H IV 07/29/17 12:00 07/29/17 11:48 Miscellaneous Information SPECIFIC LAB TO BE DRAWN:VANCOMYCIN TROUGH DATE TO... ONCE ONCE .XX 08/01/17 11:45 08/01/17 11:46 (Xanax) 0.25 mg HS PO 07/29/17 21:00 07/29/17 21:09 (CeleXA) 20 mg DAILY PO 07/29/17 14:00 07/29/17 16:44 (Neurontin) 300 mg HS PO 07/29/17 21:00 07/29/17 21:09 (Synthroid) 125 mcg DAILY@0600 PO 07/30/17 06:00 (Protonix) 40 mg DAILY PO 07/29/17 14:00 07/29/17 16:43 ([place] 5-325 Mg) 1 tab Q4H PRN PO 07/29/17 14:30 (Aspirin Chew) 81 mg DAILY CHEW 07/29/17 14:30 07/29/17 16:43 (Lovenox Inj) 30 mg Q24H SQ 07/29/17 17:00 Family History Lung cancer Brain hemorrhage CAD Social History The does not smoke or drink. She lives with her daughter. GI Exam Vitals I&O Vital Signs Date Time Temp Pulse Resp B/P (MAP) Pulse Ox O2 Delivery O2 Flow Rate FiO2 07/29/17 20:34 98.1 61 16 117/56 (76) 95 07/29/17 16:12 98.4 54 16 115/56 (75) 94 07/29/17 13:33 54 07/29/17 11:50 98.3 51 16 108/51 (70) 95 07/29/17 07:14 98.1 52 15 108/53 (71) 95 07/29/17 04:28 98.3 51 16 114/57 (76) 95 07/29/17 03:24 07/29/17 00:03 98.3 62 20 101/49 (66) 98 Nasal Cannula 2.00 I/O 07/28/17 07/28/17 07/28/17 07/29/17 07/29/17 07/29/17 06:59 14:59 22:59 06:59 14:59 22:59 Intake Total 50 ml 260 ml 100 ml Balance 50 ml 260 ml 100 ml Intake IV Total 50 ml 260 ml 100 ml # Voids 1 Laboratory Test 07/29/17 19:35 Blood Urea Nitrogen 13 MG/DL Creatinine 0.92 MG/DL Random Glucose 113 MG/DL Total Protein 5.6 GM/DL Albumin 2.6 GM/DL Calcium Level 8.0 MG/DL Alkaline Phosphatase 221 U/L Aspartate Amino Transf (AST/SGOT) 133 U/L Alanine Aminotransferase (ALT/SGPT) 200 U/L Total Bilirubin 3.0 MG/DL Sodium Level 139 MEQ/L Potassium Level 3.3 MEQ/L Chloride Level 105 MEQ/L Carbon Dioxide Level 28.4 MEQ/L Anion Gap 6 MEQ/L Estimat Glomerular Filtration Rate 58 ML/MIN Date/Time Source Procedure Growth Status 07/29/17 13:00 Blood Peripheral Aerobic Blood Culture Pending Received 07/29/17 13:00 Blood Peripheral Anaerobic Blood Culture Pending Received Physical Examination HEENT: Pupils round and reactive to light; normocephalic; atraumatic; mild jaundice Throat is clear. NECK: Neck is supple, no JVD, no lymphadenopathy. CHEST: Chest is clear to auscultation and percussion. CARDIAC: Regular rate and rhythm with no murmur gallop or rubs. ABDOMEN: Soft, nondistended, nontender; no hepatosplenomegaly; bowel sounds are present in all four quadrants. EXTREMITIES: No clubbing, cyanosis, or edema. SKIN: Normal; no rash; no jaundice. [employer]: No focal deficits; alert and oriented times three. Assessment and Plan Plan Imp: Epitgastric pain probably due to billiary colic. Possible stone versus papillary stenosis Plan: MRCP Probably will need ERCP tomorrow. Will keep NPO after midnight. Star Kaba MD Jul 29, 2017 21:36
[2017-07-30 04:12] VITALS: BP 128/67; PULSE 53; RESP 16; TEMP 98.2; O2SAT 96
[2017-07-30] MEDS: LEVOTHYROXINE SODIUM 125 MCG TAB PO SCH (05:40)
[2017-07-30] MEDS: PIPERACIL-TAZO 3.375 GM PREMIX 50 ML IV SCH ×4 (05:40→20:14)
[2017-07-30 07:41] VITALS: O2SAT 92
[2017-07-30 08:14] VITALS: BP 132/60; PULSE 48; RESP 16; TEMP 97.8; O2SAT 95
[2017-07-30] MEDS: SODIUM CHLORIDE 0.9% FLUSH 10 ML FLUSH IV FLUSH SCH ×2 (08:20→20:14)
[2017-07-30] MEDS: PANTOPRAZOLE SOD 40 MG DELAYED RELEASE TAB PO SCH (08:20)
[2017-07-30] MEDS: ASPIRIN 81 MG CHEW TAB CHEW SCH (08:20)
[2017-07-30] MEDS: CITALOPRAM HYDROBROMIDE 20 MG TAB PO SCH (08:20)
[2017-07-30 08:55] LABS: AUTOMATED NEUTROPHIL # 3.7 TH/MM3 (1.8-7.7); BASOPHIL % 0.6 % (0.0-2.0); EOSINOPHIL # 0.1 TH/MM3 (0-0.4); EOSINOPHIL % 1.9 % (0.0-4.0); HEMATOCRIT 31.3 % (35.0-46.0); HEMO FLAGS DIFF FINAL; LYMPH % 18.3 % (9.0-44.0); MEAN CELL VOLUME 91.7 FL (80.0-100.0); MEAN CORPUSCULAR HEMOGLOBIN 30.8 PG (27.0-34.0); MEAN CORPUSCULAR HGB CONC 33.6 % (32.0-36.0); MONO % 8.4 % (0.0-8.0); NEUT % 70.8 % (16.0-70.0); PLATELET COUNT 168 TH/MM3 (150-450); RED BLOOD COUNT 3.42 MIL/MM3 (4.00-5.30); RED CELL DISTRIBUTION WIDTH 14.7 % (11.6-17.2); WHITE BLOOD COUNT 5.2 TH/MM3 (4.0-11.0)
[2017-07-30 09:07] LABS: ANION GAP 7 MEQ/L (5-15); AST (GOT) 98 U/L (15-37); BICARBONATE 27.6 MEQ/L (21.0-32.0); BLOOD UREA NITROGEN 11 MG/DL (7-18); CHLORIDE 107 MEQ/L (98-107); GLOMERULAR FILTRATION RATE 59 ML/MIN (>89); POTASSIUM 3.1 MEQ/L (3.5-5.1); SODIUM (NA) 142 MEQ/L (136-145)
[2017-07-30 09:09] LABS: ALT (GPT) 171 U/L (10-53)
[2017-07-30 09:11] LABS: ALKALINE PHOSPHATASE 201 U/L (45-117); TOTAL BILIRUBIN ADULT 1.7 MG/DL (0.2-1.0)
[2017-07-30 10:36] VITALS: PULSE 46
[2017-07-30] MEDS ORDERED: ONDANSETRON HCL 4 MG/2 ML VIAL IV PUSH ONE (12:00)
[2017-07-30] MEDS ORDERED: PROPOFOL 200 MG/20 ML AMP IV ONE (12:00)
[2017-07-30] MEDS ORDERED: NEOSTIGMINE 3 MG/3 ML SYR IV ONE (12:00)
--- NOTE | 2017-07-30 12:19 | HHI.PR ---
Subjective Remarks Follow up for abdominal pain, suspect ascending cholangitis, bacteremia. The patient reports feeling better today. Denies any abdominal pain, nausea/ vomiting overnight. Denies fevers/chills. She does report epigastric and RUQ pain only when pressing "hard" in those areas. Denies any diarrhea. Denies any other medical complaints at this time. Objective Vitals Vital Signs Date Time Temp Pulse Resp B/P (MAP) Pulse Ox O2 Delivery O2 Flow Rate FiO2 07/30/17 10:36 46 07/30/17 08:14 97.8 48 16 132/60 (84) 95 07/30/17 07:41 92 21 07/30/17 04:12 98.2 53 16 128/67 (87) 96 07/29/17 23:06 98.0 52 16 125/60 (81) 95 07/29/17 20:34 98.1 61 16 117/56 (76) 95 07/29/17 16:12 98.4 54 16 115/56 (75) 94 07/29/17 13:33 54 I/O 07/29/17 07/29/17 07/29/17 07/30/17 07/30/17 07/30/17 07:00 15:00 23:00 07:00 15:00 23:00 Intake Total 50 ml 260 ml 100 ml Balance 50 ml 260 ml 100 ml Intake IV Total 50 ml 260 ml 100 ml # Voids 1 1 Result Diagram: 07/30/1771007/30/17710 Imaging Last Impressions Chest X-Ray 07/28/172035 Signed Impressions: Service Date/Time: Friday, July 28, 2017 21:03 - CONCLUSION: No acute disease. There is no evidence of pneumonia. Toni Fuentes MD Abdomen/Pelvis CT 07/28/172035 Signed Impressions: Service Date/Time: Friday, July 28, 2017 23:06 - CONCLUSION: 1. Status post cholecystectomy with prominent extrahepatic and mild intrahepatic ductal dilatation extending to the ampulla. Although post cholecystectomy reservoir effect may result in some extrahepatic ductal dilatation, overall degree of ductal prominence is atypical. Further evaluation may be performed with ERCP or MRCP as clinically warranted. 2. Prominent sigmoid diverticulosis with subtle perisigmoid inflammatory change, likely chronic. Differential considerations include developing diverticulitis. No abscess or perforation. 3. Small fat-containing periumbilical hernia with subtle stranding of the fat. Clinical correlation for strangulated hernia is recommended. Ry Gutierrez MD Objective Remarks GENERAL: Well-nourished, well-developed pleasant elderly female patient in NAD. SKIN: Warm and dry. No rash. HEENT: Normocephalic. Atraumatic. Pupils equal and round. Mucous membranes pink and moist. CARDIOVASCULAR: Regular rate and rhythm. S1, S2 noted. No murmur appreciated. RESPIRATORY: No accessory muscle use. Clear to auscultation. Breath sounds equal bilaterally. GASTROINTESTINAL: Abdomen soft, nondistended, mild tenderness to deep palpation at epigastric/RUQ. Normoactive bowel sounds x4. MUSCULOSKELETAL: No obvious deformities. Extremities without clubbing, cyanosis , or edema. NEUROLOGICAL: Awake and alert. No obvious cranial nerve deficits. Motor grossly within normal limits. Normal speech. PSYCHIATRIC: Appropriate mood and affect; insight and judgment normal. Medications and IVs Current Medications Medications (Trade) Dose Ordered Sig/Andrew Route Start Time Stop Time Status Last Admin (NS Flush) 2 ml UNSCH PRN IV FLUSH 07/29/17 01:45 (NS Flush) 2 ml BID IV FLUSH 07/29/17 09:00 07/30/17 08:20 (Tylenol) 650 mg Q4H PRN PO 07/29/17 01:45 (Zofran Inj) 4 mg Q6H PRN IVP 07/29/17 01:45 (Narcan Inj) 0.4 mg UNSCH PRN IV 07/29/17 01:45 Pharmacy Profile Note 0 ml @ 0 mls/hr UNSCH OTHER 07/29/17 10:00 Piperacillin Sod/ Tazobactam Sod 50 ml @ 100 mls/hr Q6H IV 07/29/17 17:00 07/30/17 11:48 Vancomycin HCl 1000 mg/Sodium Chloride 250 ml @ 250 mls/hr Q24H IV 07/29/17 12:00 07/29/17 11:48 Miscellaneous Information SPECIFIC LAB TO BE DRAWN:VANCOMYCIN TROUGH DATE TO... ONCE ONCE .XX 08/01/17 11:45 08/01/17 11:46 (Xanax) 0.25 mg HS PO 07/29/17 21:00 07/29/17 21:09 (CeleXA) 20 mg DAILY PO 07/29/17 14:00 07/30/17 08:20 (Neurontin) 300 mg HS PO 07/29/17 21:00 07/29/17 21:09 (Synthroid) 125 mcg DAILY@0600 PO 07/30/17 06:00 07/30/17 05:40 (Protonix) 40 mg DAILY PO 07/29/17 14:00 07/30/17 08:20 ([place] 5-325 Mg) 1 tab Q4H PRN PO 07/29/17 14:30 (Aspirin Chew) 81 mg DAILY CHEW 07/29/17 14:30 07/30/17 08:20 (Lovenox Inj) 30 mg Q24H SQ 07/29/17 17:00 A/P Assessment and Plan Ascending cholangitis/ Bacteremia The pt has had abdominal pain over the past two weeks associated with N/V and fever. She has elevated LFTs. CT abdomen revealed: S/p cholecystectomy with prominent extrahepatic and mild intrahepatic ductal dilatation extending to the ampulla; Although post cholecystectomy reservoir effect may result in some extrahepatic ductal dilatation, overall degree of ductal prominence is atypical ; Prominent sigmoid diverticulosis with subtle perisigmoid inflammatory change, likely chronic; Small fat-containing periumbilical hernia with subtle stranding of the fat. Blood culture positive for Bacillus species not anthracis - continue vancomycin and Zosyn. - GI evaluation requested. - Planning for ERCP today - pain control as needed. - follow LFTs. - PPI. - repeat blood cultures pending. Hypokalemia S/t decreased PO intake. - replete and monitor. CHF Volume status seems stable. - Lasix on hold. - monitor Is and Os. HTN BP slightly elevated. - Vasotec as needed. PPx: Lovenox on hold for procedure; teds/SCDs Mere Andrade PA-C Jul 30, 2017 12:19 pm
[2017-07-30 12:22] VITALS: BP 134/61; PULSE 50; RESP 16; TEMP 97.8; O2SAT 94
[2017-07-30] MEDS: VANCOMYCIN 1,000 MG/NS 250 ML IV SCH ×2 (12:43)
--- NOTE | 2017-07-30 12:50 | HHI.GIFU ---
Subjective Remarks Resting in bed. States her abdominal pain is much improved, only mild RUQ/ Epigastric tenderness now. Denies n/v, fever chills. States she had her gallbladder removed years ago. Objective Vitals I&O Vital Signs Date Time Temp Pulse Resp B/P (MAP) Pulse Ox O2 Delivery O2 Flow Rate FiO2 07/30/17 12:22 97.8 50 16 134/61 (85) 94 07/30/17 10:36 46 07/30/17 08:14 97.8 48 16 132/60 (84) 95 07/30/17 07:41 92 21 07/30/17 04:12 98.2 53 16 128/67 (87) 96 07/29/17 23:06 98.0 52 16 125/60 (81) 95 07/29/17 20:34 98.1 61 16 117/56 (76) 95 07/29/17 16:12 98.4 54 16 115/56 (75) 94 07/29/17 13:33 54 I/O 07/29/17 07/29/17 07/29/17 07/30/17 07/30/17 07/30/17 07:00 15:00 23:00 07:00 15:00 23:00 Intake Total 50 ml 260 ml 100 ml Balance 50 ml 260 ml 100 ml Intake IV Total 50 ml 260 ml 100 ml # Voids 1 1 Laboratory Laboratory Tests Test 07/29/17 19:35 07/30/17 07:11 Blood Urea Nitrogen 13 11 Creatinine 0.92 0.91 Random Glucose 113 67 Total Protein 5.6 5.5 Albumin 2.6 2.5 Calcium Level 8.0 8.2 Alkaline Phosphatase 221 201 Aspartate Amino Transf (AST/SGOT) 133 98 Alanine Aminotransferase (ALT/SGPT) 200 171 Total Bilirubin 3.0 1.7 Sodium Level 139 142 Potassium Level 3.3 3.1 Chloride Level 105 107 Carbon Dioxide Level 28.4 27.6 Anion Gap 6 7 Estimat Glomerular Filtration Rate 58 59 White Blood Count 5.2 Red Blood Count 3.42 Hemoglobin 10.5 Hematocrit 31.3 Mean Corpuscular Volume 91.7 Mean Corpuscular Hemoglobin 30.8 Mean Corpuscular Hemoglobin Concent 33.6 Red Cell Distribution Width 14.7 Platelet Count 168 Mean Platelet Volume 7.3 Neutrophils (%) (Auto) 70.8 Lymphocytes (%) (Auto) 18.3 Monocytes (%) (Auto) 8.4 Eosinophils (%) (Auto) 1.9 Basophils (%) (Auto) 0.6 Neutrophils # (Auto) 3.7 Lymphocytes # (Auto) 1.0 Monocytes # (Auto) 0.4 Eosinophils # (Auto) 0.1 Basophils # (Auto) 0.0 CBC Comment DIFF FINAL Differential Comment Date/Time Source Procedure Growth Status 07/29/17 13:00 Blood Peripheral Aerobic Blood Culture - Preliminary NO GROWTH IN 1 DAY Resulted 07/29/17 13:00 Blood Peripheral Anaerobic Blood Culture - Preliminary NO GROWTH IN 1 DAY Resulted Imaging Last Impressions Chest X-Ray 07/28/172035 Signed Impressions: Service Date/Time: Friday, July 28, 2017 21:03 - CONCLUSION: No acute disease. There is no evidence of pneumonia. Toni Fuentes MD Abdomen/Pelvis CT 07/28/172035 Signed Impressions: Service Date/Time: Friday, July 28, 2017 23:06 - CONCLUSION: 1. Status post cholecystectomy with prominent extrahepatic and mild intrahepatic ductal dilatation extending to the ampulla. Although post cholecystectomy reservoir effect may result in some extrahepatic ductal dilatation, overall degree of ductal prominence is atypical. Further evaluation may be performed with ERCP or MRCP as clinically warranted. 2. Prominent sigmoid diverticulosis with subtle perisigmoid inflammatory change, likely chronic. Differential considerations include developing diverticulitis. No abscess or perforation. 3. Small fat-containing periumbilical hernia with subtle stranding of the fat. Clinical correlation for strangulated hernia is recommended. Ry Gutierrez MD Physical Exam HEENT: Normocephalic; atraumatic; no jaundice. CHEST: CTA CARDIAC: RRR ABDOMEN: Soft, nondistended, RUQ/Epigastric tenderness; no hepatosplenomegaly; bowel sounds are present in all four quadrants. EXTREMITIES: No clubbing, cyanosis, or edema. SKIN: Normal; no rash; no jaundice. REVENUE INTEGRITY ANALYST: No focal deficits; alert and oriented times three. Assessment and Plan Plan ASSESSMENT: - Abdominal pain with elevated LFTs. CT Scan abdomen and pelvis (07/28/17)----> S /P cholecystectomy with prominent extrahepatic and mild intrahepatic ductal dilatation extending to the ampulla. Although post cholecystectomy reservoir effect may results in some extrahepatic ductal dilatation, overall degree of ductal prominence is atypical. Further evaluation may be performed with ERCP or MRCP as clinically warranted. Prominent sigmoid diverticulosis with subtle perisigmoid inflammatory change, likely chronic. Differential considerations include developing diverticulitis. No abscess or perforation. Small fat containing periumbilical hernia with subtale stranding of the fat. Clinical correlation for strangulated hernia is recommended. LFTs are trending down, T. Bili 1.7, AST 98, ALT 171, Alk Phosph 201. Lipase 196. NPO for possible MRCP/ERCP will d/w Dr. Brooks. Precioussyn - Abnormal CT with possible chronic perisigmoid inflammatory change, small fat containing periumbilical hernia with subtle stranding of fat- further recommendations per Dr. Kaba. Precioussymaicol - Anemia. [id number]. - Hypokalemia, CHF, HTN per attending. PLAN: - NPO - MRCP vs. ERCP - PPI - Zosyn - Further recommendations to follow after seen by Evelina CarP Jul 30, 2017 12:50
[2017-07-30] MEDS: POTASSIUM CHLOR 20 MEQ PREMIX 100 ML IV SCH ×2 (14:09→15:00)
--- NOTE | 2017-07-30 17:01 | RADRPT ---
EXAM DATE/TIME: 07/30/2017 15:07 [facility] COMPARISON: CT ABDOMEN & PELVIS W CONTRAST, July 28, 2017, 23:06. INDICATIONS : Obstruction. MEDICAL HISTORY : Carcinoma, ovarian. SURGICAL HISTORY : Hysterectomy. Prolapsed rectum. Left hip surgery. ENCOUNTER: Subsequent ACUITY: 2 day PAIN SCORE: 0/10 LOCATION: abdomen. TECHNIQUE: Multiplanar, multisequence magnetic resonance imaging of the abdomen was performed. High-resolution 3D dataset was utilized to reconstruct maximum-intensity projection (MIP) images. FINDINGS: INTRAHEPATIC BILE DUCTS: Mildly dilated no filling defects. EXTRAHEPATIC BILE DUCTS: Moderately dilated with common duct diameter of approximately 16 mm. Filling defect in the distal CBD consistent with 12 mm stone GALLBLADDER: Surgically absent LIVER: Small cyst involving the tip of the right lobe. No suspicious mass. PANCREAS: The main pancreatic duct is normal in size. There is no significant anatomical variant. Signal inte nsity is within normal limits. No mass is visualized on this non-contrast exam. OTHER: The remaining visualized structures demonstrate no acute abnormality on this non-contrast exam. CONCLUSION: Distal CBD stone with pronounced biliary ductal dilatation Kar Jones MD on July 30, 2017 at 16:52 Board Certified Radiologist. This report was verified electronically.
[2017-07-30] MEDS ORDERED: GLUCAGON 1 MG/ML VIAL IV PUSH ONE (17:17)
[2017-07-30] MEDS ORDERED: PROPOFOL 200 MG/20 ML AMP IV PUSH ONE (17:32)
--- NOTE | 2017-07-30 17:37 | GIPROC ---
[facility] [address] [facility] [place], [address] ERCP PROCEDURE REPORT EXAM DATE: 07/30/2017 PATIENT NAME: Elisa Tolentino MR #: [id number] BIRTHDATE: 1930 ATTENDING: Tami Esparza MD ORDER #: [id number] LABORER SALVAGE: Tiffani Camacho and Verna Whelan STATUS: inpatient INDICATIONS: The patient is a 87 yr old female here for an ERCP due to established bile duct stone(s) PROCEDURE PERFORMED: ERCP with stent placement MEDICATIONS: Per Anesthesia and None. CONSENT: The patient understands the risks and benefits of the procedure and understands that these risks include, but are not limited to: sedation, allergic reaction, infection, perforation and/or bleeding. Alternative means of evaluation and treatment include, among others: physical exam, x-rays, and/or surgical intervention. The patient elects to proceed with this endoscopic procedure. medical equipment was checked for proper function. Hand hygiene and appropriate measures for infection prevention was taken. After the risks, benefits and alternatives of the procedure were thoroughly explained, Informed was verified, confirmed and timeout was successfully executed by the treatment team. With the patient in left semi-prone position, medications were administered intravenously.The Pentax [id number] was passed from the mouth into the esophagus and further advanced from the esophagus into the stomach. From stomach scope was directed to the second portion of the duodenum. Major papilla was aligned with the duodenoscope. The scope position was confirmed fluoroscopically. Rest of the findings/therapeutics are given below. The scope was then completely withdrawn from the patient and the procedure completed. The pulse, BP, and O2 saturation were monitored and documented by the physician and the nursing staff throughout the entire procedure. The patient was cared for as planned according to standard protocol. The patient was then discharged to recovery in stable condition and with appropriate post procedure care. A single filling defect was seen in the distal common bile duct. CBD dilated, stenotic ampulla. 8.5 x 9 cm stent placed. The ampulla was located the second portion of the duodenum. NOrmal Pancreatic duct ADVERSE EVENT: There were no complications. IMPRESSIONS: CBD dilated, stenotic ampulla. 8.5 x 9 cm stent placed RECOMMENDATIONS: 1. Follow-up: GI clinic 4 week(s) 2. Liver enzymes REPEAT EXAM: Return 3 months ERCP Tami Esparza MD eSigned: Tami Esparza MD 07/30/2017 5:37 PM cc:
[2017-07-30] MEDS ORDERED: DO NOT ADM ANY ANTICOAGULANT DRUGS PRN (17:39)
--- NOTE | 2017-07-30 19:07 | RADRPT ---
EXAM DATE/TIME: 07/30/2017 17:08 [facility] COMPARISON: No previous studies available for comparison. INDICATIONS : ERCP FLUORO TIME: 1.33 minutes IMAGE COUNT: 17 CONTRAST: Instilled by Ordering Physician MEDICAL HISTORY : None. SURGICAL HISTORY : None. ENCOUNTER: Initial ACUITY: 1 day PAIN SCORE: Non-responsive. LOCATION: Abdomen. FINDINGS: An ERCP was performed by the ordering physician. The images demonstrate injection of contrast into the pancreatic duct. No discrete filling defects id entified. There is also injection into the dilated common bile duct with filling defect present in di stal common bile duct. CONCLUSION: ERCP as above. Osmany Landry MD on July 30, 2017 at 19:02 Board Certified Radiologist. This report was verified electronically.
[2017-07-30] MEDS: ALPRAZolam 0.25 MG TAB PO SCH (20:16)
[2017-07-30] MEDS: GABAPENTIN 300 MG CAP PO SCH (20:16)
[2017-07-30 20:58] VITALS: BP 136/64; PULSE 51; RESP 17; TEMP 98.2; O2SAT 94
[2017-07-31] VITALS (12 sets, daily range): BP systolic 120–185; BP diastolic 57–79; PULSE 52–63; RESP 16–18; TEMP 97.4–98.5; O2SAT 91–96
[2017-07-31] MEDS: PIPERACIL-TAZO 3.375 GM PREMIX 50 ML IV SCH ×4 (00:23→23:18)
[2017-07-31] MEDS: LEVOTHYROXINE SODIUM 125 MCG TAB PO SCH (05:53)
[2017-07-31 08:24] LABS: AUTOMATED NEUTROPHIL # 5.1 TH/MM3 (1.8-7.7); BASOPHIL % 0.6 % (0.0-2.0); EOSINOPHIL # 0.1 TH/MM3 (0-0.4); HEMATOCRIT 33.6 % (35.0-46.0); HEMO FLAGS DIFF FINAL; LYMPHOCYTE # 0.6 TH/MM3 (1.0-4.8); MEAN CELL VOLUME 92.1 FL (80.0-100.0); MEAN CORPUSCULAR HEMOGLOBIN 30.7 PG (27.0-34.0); MEAN CORPUSCULAR HGB CONC 33.3 % (32.0-36.0); MONO % 7.5 % (0.0-8.0); NEUT % 80.9 % (16.0-70.0); PLATELET COUNT 187 TH/MM3 (150-450); RED BLOOD COUNT 3.65 MIL/MM3 (4.00-5.30); RED CELL DISTRIBUTION WIDTH 14.7 % (11.6-17.2); WHITE BLOOD COUNT 6.3 TH/MM3 (4.0-11.0)
[2017-07-31 08:49] LABS: INDIRECT BILIRUBIN 0.6 MG/DL (0.0-0.8); TOTAL BILIRUBIN ADULT 1.3 MG/DL (0.2-1.0)
[2017-07-31] MEDS: PANTOPRAZOLE SOD 40 MG DELAYED RELEASE TAB PO SCH (09:21)
[2017-07-31] MEDS: ASPIRIN 81 MG CHEW TAB CHEW SCH (09:21)
[2017-07-31] MEDS: SODIUM CHLORIDE 0.9% FLUSH 10 ML FLUSH IV FLUSH SCH ×2 (09:21→20:47)
[2017-07-31] MEDS: CITALOPRAM HYDROBROMIDE 20 MG TAB PO SCH (09:21)
--- NOTE | 2017-07-31 10:27 | HHI.PR ---
Subjective Remarks Follow up for CBD stone, ascending cholangitis. The patient is s/p ERCP with stent placement yesterday. She feels much better today. Denies any fevers/chills , abdominal pains, nausea/vomiting. She tolerated some breakfast today, coffee and grits. She is looking forward to lunch. She has no other medical complaints at this time. Objective Vitals Vital Signs Date Time Temp Pulse Resp B/P (MAP) Pulse Ox O2 Delivery O2 Flow Rate FiO2 07/31/17 07:30 97.8 52 16 125/58 (80) 91 07/31/17 05:30 63 07/31/17 05:23 97.9 56 17 125/60 (81) 92 07/31/17 05:06 98.0 57 17 128/60 (82) 94 07/31/17 04:00 52 07/31/17 01:41 97.8 56 18 148/64 (92) 93 07/30/17 20:58 98.2 51 17 136/64 (88) 94 07/30/17 18:00 52 16 145/64 (91) 92 Room Air 07/30/17 17:45 53 16 153/67 (95) 94 Room Air 07/30/17 17:37 97.7 58 16 158/65 (96) 92 Room Air 07/30/17 12:22 97.8 50 16 134/61 (85) 94 07/30/17 10:36 46 I/O 07/30/17 07/30/17 07/30/17 07/31/17 07/31/17 07/31/17 07:00 15:00 23:00 07:00 15:00 23:00 Intake Total 300 ml 250 ml Balance 300 ml 250 ml Intake IV Total 300 ml 50 ml Other 200 ml # Voids 1 Result Diagram: 07/31/17 0718 07/30/17 0711 Imaging Last Impressions GI Procedure 07/30/17 0000 Signed Impressions: Service Date/Time: Sunday, July 30, 2017 17:08 - CONCLUSION: ERCP as above. Osmany Landry MD Cholangiopancreatography MRI 07/30/17 0000 Signed Impressions: Service Date/Time: Sunday, July 30, 2017 15:07 - CONCLUSION: Distal CBD stone with pronounced biliary ductal dilatation Kar Jones MD Chest X-Ray 07/28/172035 Signed Impressions: Service Date/Time: Friday, July 28, 2017 21:03 - CONCLUSION: No acute disease. There is no evidence of pneumonia. Toni Fuentes MD Abdomen/Pelvis CT 07/28/172035 Signed Impressions: Service Date/Time: Friday, July 28, 2017 23:06 - CONCLUSION: 1. Status post cholecystectomy with prominent extrahepatic and mild intrahepatic ductal dilatation extending to the ampulla. Although post cholecystectomy reservoir effect may result in some extrahepatic ductal dilatation, overall degree of ductal prominence is atypical. Further evaluation may be performed with ERCP or MRCP as clinically warranted. 2. Prominent sigmoid diverticulosis with subtle perisigmoid inflammatory change, likely chronic. Differential considerations include developing diverticulitis. No abscess or perforation. 3. Small fat-containing periumbilical hernia with subtle stranding of the fat. Clinical correlation for strangulated hernia is recommended. Ry Gutierrez MD Objective Remarks GENERAL: Well-nourished, well-developed pleasant elderly female patient in [facility]. SKIN: Warm and dry. No rash. HEENT: Normocephalic. Atraumatic. Pupils equal and round. Mucous membranes pink and moist. CARDIOVASCULAR: Regular rate and rhythm. S1, S2 noted. No murmur appreciated. RESPIRATORY: No accessory muscle use. Clear to auscultation. Breath sounds equal bilaterally. GASTROINTESTINAL: Abdomen soft, nondistended, nontender today. Normoactive bowel sounds x4. MUSCULOSKELETAL: No obvious deformities. Extremities without clubbing, cyanosis , or edema. NEUROLOGICAL: Awake and alert. No obvious cranial nerve deficits. Motor grossly within normal limits. Normal speech. PSYCHIATRIC: Appropriate mood and affect; insight and judgment normal. Procedures 07/30/17 - ERCP with stent placement Medications and IVs Current Medications Medications (Trade) Dose Ordered Sig/Andrew Route Start Time Stop Time Status Last Admin (NS Flush) 2 ml UNSCH PRN IV FLUSH 07/29/17 01:45 (NS Flush) 2 ml BID IV FLUSH 07/29/17 09:00 07/31/17 09:21 (Tylenol) 650 mg Q4H PRN PO 07/29/17 01:45 (Zofran Inj) 4 mg Q6H PRN IVP 07/29/17 01:45 (Narcan Inj) 0.4 mg UNSCH PRN IV 07/29/17 01:45 Pharmacy Profile Note 0 ml @ 0 mls/hr UNSCH OTHER 07/29/17 10:00 Piperacillin Sod/ Tazobactam Sod 50 ml @ 100 mls/hr Q6H IV 07/29/17 17:00 07/31/17 05:53 Vancomycin HCl 1000 mg/Sodium Chloride 250 ml @ 250 mls/hr Q24H IV 07/29/17 12:00 07/30/17 12:43 Miscellaneous Information SPECIFIC LAB TO BE DRAWN:VANCOMYCIN TROUGH DATE TO... ONCE ONCE .XX 08/01/17 11:45 08/01/17 11:46 (Xanax) 0.25 mg HS PO 07/29/17 21:00 07/30/17 20:16 (CeleXA) 20 mg DAILY PO 07/29/17 14:00 07/31/17 09:21 (Neurontin) 300 mg HS PO 07/29/17 21:00 07/30/17 20:16 (Synthroid) 125 mcg DAILY@0600 PO 07/30/17 06:00 07/31/17 05:53 (Protonix) 40 mg DAILY PO 07/29/17 14:00 07/31/17 09:21 ([place] 5-325 Mg) 1 tab Q4H PRN PO 07/29/17 14:30 (Aspirin Chew) 81 mg DAILY CHEW 07/29/17 14:30 07/31/17 09:21 (Lovenox Inj) 30 mg Q24H SQ 07/29/17 17:00 Future Hold Miscellaneous Information ALL NURSING DEPARTME... UNSCH PRN .XX 07/30/17 17:39 07/31/17 17:38 A/P Assessment and Plan CBD Stone/Ascending cholangitis/ Bacteremia The pt has had abdominal pain over the past two weeks associated with N/V and fever. She has elevated LFTs. CT abdomen revealed: S/p cholecystectomy with prominent extrahepatic and mild intrahepatic ductal dilatation extending to the ampulla; Although post cholecystectomy reservoir effect may result in some extrahepatic ductal dilatation, overall degree of ductal prominence is atypical ; Prominent sigmoid diverticulosis with subtle perisigmoid inflammatory change, likely chronic; Small fat-containing periumbilical hernia with subtle stranding of the fat. Blood culture positive for Bacillus species not anthracis - continue IV vancomycin and Zosyn for now. - GI evaluation requested. - 07/30 ERCP with stent placement - pain control as needed. - follow LFTs, trending down. - Continue PPI. - repeat blood cultures with no growth, suspect contaminant Hypokalemia S/t decreased PO intake. - replete and monitor. CHF Volume status seems stable. - Lasix on hold. - monitor Is and Os. HTN BP slightly elevated. - Vasotec as needed. PPx: Lovenox on hold for procedure; teds/SCDs Discharge Planning Discharge when cleared by GI, possibly today or tomorrow. Mere Andrade PA-C Jul 31, 2017 10:27 am
[2017-07-31] MEDS: VANCOMYCIN 1,000 MG/NS 250 ML IV SCH ×2 (12:07)
--- NOTE | 2017-07-31 16:40 | HHI.GIFU ---
Subjective Remarks Pt resting in bed. Denies abd pain, n/v. Tolerating diet. (Anamika Smalls) Objective Vitals I&O Vital Signs Date Time Temp Pulse Resp B/P (MAP) Pulse Ox O2 Delivery O2 Flow Rate FiO2 07/31/17 12:10 98.5 63 18 185/79 (114) 96 07/31/17 11:02 97.5 53 16 146/64 (91) 95 07/31/17 07:30 97.8 52 16 125/58 (80) 91 07/31/17 05:30 63 07/31/17 05:23 97.9 56 17 125/60 (81) 92 07/31/17 05:06 98.0 57 17 128/60 (82) 94 07/31/17 04:00 52 07/31/17 01:41 97.8 56 18 148/64 (92) 93 07/30/17 20:58 98.2 51 17 136/64 (88) 94 07/30/17 18:00 52 16 145/64 (91) 92 Room Air 07/30/17 17:45 53 16 153/67 (95) 94 Room Air 07/30/17 17:37 97.7 58 16 158/65 (96) 92 Room Air I/O 07/30/17 07/30/17 07/30/17 07/31/17 07/31/17 07/31/17 07:00 15:00 23:00 07:00 15:00 23:00 Intake Total 300 ml 250 ml Balance 300 ml 250 ml Intake IV Total 300 ml 50 ml Other 200 ml # Voids 1 Laboratory Laboratory Tests Test 07/31/17 07:18 White Blood Count 6.3 Red Blood Count 3.65 Hemoglobin 11.2 Hematocrit 33.6 Mean Corpuscular Volume 92.1 Mean Corpuscular Hemoglobin 30.7 Mean Corpuscular Hemoglobin Concent 33.3 Red Cell Distribution Width 14.7 Platelet Count 187 Mean Platelet Volume 7.1 Neutrophils (%) (Auto) 80.9 Lymphocytes (%) (Auto) 10.0 Monocytes (%) (Auto) 7.5 Eosinophils (%) (Auto) 1.0 Basophils (%) (Auto) 0.6 Neutrophils # (Auto) 5.1 Lymphocytes # (Auto) 0.6 Monocytes # (Auto) 0.5 Eosinophils # (Auto) 0.1 Basophils # (Auto) 0.0 CBC Comment DIFF FINAL Differential Comment Total Bilirubin 1.3 Direct Bilirubin 0.7 Indirect Bilirubin 0.6 Aspartate Amino Transf (AST/SGOT) 51 Alanine Aminotransferase (ALT/SGPT) 131 Alkaline Phosphatase 200 Total Protein 5.7 Albumin 2.5 Date/Time Source Procedure Growth Status 07/29/17 13:00 Blood Peripheral Aerobic Blood Culture - Preliminary NO GROWTH IN 2 DAYS Resulted 07/29/17 13:00 Blood Peripheral Anaerobic Blood Culture - Preliminary NO GROWTH IN 2 DAYS Resulted Imaging Last Impressions GI Procedure 07/30/17 0000 Signed Impressions: Service Date/Time: Sunday, July 30, 2017 17:08 - CONCLUSION: ERCP as above. Osmany Landry MD Cholangiopancreatography MRI 07/30/17 0000 Signed Impressions: Service Date/Time: Sunday, July 30, 2017 15:07 - CONCLUSION: Distal CBD stone with pronounced biliary ductal dilatation Kar Jones MD Chest X-Ray 07/28/172035 Signed Impressions: Service Date/Time: Friday, July 28, 2017 21:03 - CONCLUSION: No acute disease. There is no evidence of pneumonia. Toni Fuentes MD Abdomen/Pelvis CT 07/28/172035 Signed Impressions: Service Date/Time: Friday, July 28, 2017 23:06 - CONCLUSION: 1. Status post cholecystectomy with prominent extrahepatic and mild intrahepatic ductal dilatation extending to the ampulla. Although post cholecystectomy reservoir effect may result in some extrahepatic ductal dilatation, overall degree of ductal prominence is atypical. Further evaluation may be performed with ERCP or MRCP as clinically warranted. 2. Prominent sigmoid diverticulosis with subtle perisigmoid inflammatory change, likely chronic. Differential considerations include developing diverticulitis. No abscess or perforation. 3. Small fat-containing periumbilical hernia with subtle stranding of the fat. Clinical correlation for strangulated hernia is recommended. Ry Gutierrez MD Physical Exam HEENT: Normocephalic; atraumatic; no jaundice. CHEST: CTA CARDIAC: RRR ABDOMEN: Soft, nondistended, mild RUQ TTP; no hepatosplenomegaly; bowel sounds are present in all four quadrants. EXTREMITIES: No clubbing, cyanosis, or edema. SKIN: Normal; no rash; no jaundice. MANAGER ORACLE RETAIL: No focal deficits; alert and oriented times three. (Anamika Smalls) Assessment and Plan Plan ASSESSMENT: - Abdominal pain with elevated LFTs. CT Scan abdomen and pelvis (07/28/17)----> S /P cholecystectomy with prominent extrahepatic and mild intrahepatic ductal dilatation extending to the ampulla. Although post cholecystectomy reservoir effect may results in some extrahepatic ductal dilatation, overall degree of ductal prominence is atypical. Further evaluation may be performed with ERCP or MRCP as clinically warranted. Prominent sigmoid diverticulosis with subtle perisigmoid inflammatory change, likely chronic. Differential considerations include developing diverticulitis. No abscess or perforation. Small fat containing periumbilical hernia with subtale stranding of the fat. Clinical correlation for strangulated hernia is recommended. LFTs are trending down, s/p ERCP found dilated CBDM, stenotic ampulla, stent placed. - Abnormal CT with possible chronic perisigmoid inflammatory change, small fat containing periumbilical hernia with subtle stranding of fat- further recommendations per Dr. Kaba. Zosyn - Anemia. HH stable - Hypokalemia, CHF, HTN per attending. PLAN: - ANN - monitor labs - f/u with GI in 4wks - ERCP with poss stent removal 3months - okay to d/c from GI standpoint - Further recommendations to follow after seen by Dr. Brooks (Anamika Smalls) Physician Comments Agree with the above note, ERCP with stent removal in 3 months, okay to discharge home from GI. (Demarcus Brooks MD) Anamika Smalls Jul 31, 2017 16:40 Demarcus Brooks MD Jul 31, 2017 19:44
[2017-07-31] MEDS: ALPRAZolam 0.25 MG TAB PO SCH (20:47)
[2017-07-31] MEDS: GABAPENTIN 300 MG CAP PO SCH (20:47)
[2017-08-01] VITALS: PULSE 53
[2017-08-01 03:44] VITALS: BP 156/70; PULSE 54; RESP 18; TEMP 98.2; O2SAT 95
[2017-08-01 04:00] VITALS: PULSE 52
[2017-08-01] MEDS: LEVOTHYROXINE SODIUM 125 MCG TAB PO SCH (05:20)
[2017-08-01] MEDS: PIPERACIL-TAZO 3.375 GM PREMIX 50 ML IV SCH (05:21)
--- NOTE | 2017-08-01 08:14 | HHI.DCPOC ---
Discharge Care Plan Diagnosis: (1) Common bile duct stone (2) Biliary obstruction (3) Hyperbilirubinemia Goals to Promote Your Health * To prevent worsening of your condition and complications * To maintain your health at the optimal level Directions to Meet Your Goals Take your medications as prescribed Follow your dietary instruction Follow activity as directed Keep your appointments as scheduled Take your immunizations and boosters as scheduled If your symptoms worsen call your PCP, if no PCP go to Urgent Care Center or Emergency Room Smoking is Dangerous to Your Health. Avoid second hand smoke Call the 24-hour hour crisis hotline for domestic abuse at Mere Andrade PA-C Aug 01, 2017 08:14
[2017-08-01] MEDS: PANTOPRAZOLE SOD 40 MG DELAYED RELEASE TAB PO SCH (08:20)
[2017-08-01] MEDS: CITALOPRAM HYDROBROMIDE 20 MG TAB PO SCH (08:20)
[2017-08-01] MEDS: ASPIRIN 81 MG CHEW TAB CHEW SCH (08:21)
[2017-08-01] MEDS: SODIUM CHLORIDE 0.9% FLUSH 10 ML FLUSH IV FLUSH SCH (08:21)
--- NOTE | 2017-08-01 08:28 | HHI.FF ---
Face to Face Verification Diagnosis: (1) Generalized weakness (2) Physical deconditioning (3) Impaired mobility and ADLs (4) pancreatic stent in place (5) Common bile duct stone (6) Biliary obstruction (7) Hyperbilirubinemia Physical Therapy Order: Evaluate and Treat, Improve ambulation, Strength and gait training Home Health Nursing Order: Medical education Signs/symptoms of disease process Nursing assessment with vital signs I have seen patient Elisa Tolentino on 08/01/17. My clinical findings support the need for the requested home health care services because: Ltd mobility - disease progression Deconditioned w/ increased weakness Limited ability to care for self I certify that my clinical findings support that this patient is homebound because: Unsteady gait/balance Unsafe to leave home unassisted Mere Andrade PA-C Aug 01, 2017 8:28 am
[2017-08-01] MEDS ORDERED: POLYETHYLENE GLYCOL 17 GM PKG PO ONE (08:45)
--- NOTE | 2017-08-01 08:45 | HHI.DS ---
cc: Demarcus Brooks MD; Tami Esparza MD Discharge Summary Admission Date Jul 29, 2017 at 12:21 am Discharge Date: Aug 01, 2017 Admitting Diagnosis biliary obstruction, hyperbilirubinemia, transaminitis (1) Common bile duct stone ICD Code: K80.50 - Calculus of bile duct without cholangitis or cholecystitis without obstruction Diagnosis: Principal Status: Acute (2) Sepsis ICD Code: A41.9 - Sepsis, unspecified organism Status: Acute Procedures 07/30/17 - ERCP with stent placement Brief History - From Admission The patient is an 87-year-old female with a past medical history of ovarian cancer and CHF who is presenting to the hospital with abdominal pain. She says that 2 weeks ago she started to develop abdominal pain. The pain is located in the center of her stomach but would radiate up to the lower part of her chest. She said she thought she was having a heart attack. She said she was unsure of what made the pain come and go. She did have some associated nausea and vomiting. She also had high fevers a few times over the past couple of weeks. She says the high she remembers is 102 point something. She went to see her primary care doctor. She said she had a liver ultrasound done which was negative. She had blood work done as well and was supposed to follow up with her doctor soon but the pain became so bad she had to come to the hospital. She says her symptoms have currently subsided. She has been tolerating a diet without difficulty. She does endorse normal bowel movements recently. CBC/BMP: 07/31/17 0718 07/30/17 0711 Significant Findings Laboratory Tests Test 07/29/17 19:35 07/30/17 07:11 07/31/17 07:18 08/01/17 07:47 Random Glucose 113 MG/DL (74-106) 67 MG/DL (74-106) Total Protein 5.6 GM/DL (6.4-8.2) 5.5 GM/DL (6.4-8.2) 5.7 GM/DL (6.4-8.2) Albumin 2.6 GM/DL (3.4-5.0) 2.5 GM/DL (3.4-5.0) 2.5 GM/DL (3.4-5.0) Calcium Level 8.0 MG/DL (8.5-10.1) 8.2 MG/DL (8.5-10.1) Alkaline Phosphatase 221 U/L (45-117) 201 U/L (45-117) 200 U/L (45-117) Aspartate Amino Transf (AST/SGOT) 133 U/L (15-37) 98 U/L (15-37) 51 U/L (15-37) Alanine Aminotransferase (ALT/SGPT) 200 U/L (10-53) 171 U/L (10-53) 131 U/L (10-53) Total Bilirubin 3.0 MG/DL (0.2-1.0) 1.7 MG/DL (0.2-1.0) 1.3 MG/DL (0.2-1.0) Potassium Level 3.3 MEQ/L (3.5-5.1) 3.1 MEQ/L (3.5-5.1) Estimat Glomerular Filtration Rate 58 ML/MIN (>89) 59 ML/MIN (>89) Red Blood Count 3.42 MIL/MM3 (4.00-5.30) 3.65 MIL/MM3 (4.00-5.30) Hemoglobin 10.5 GM/DL (11.6-15.3) 11.2 GM/DL (11.6-15.3) Hematocrit 31.3 % (35.0-46.0) 33.6 % (35.0-46.0) Neutrophils (%) (Auto) 70.8 % (16.0-70.0) 80.9 % (16.0-70.0) Monocytes (%) (Auto) 8.4 % (0.0-8.0) Lymphocytes # (Auto) 0.6 TH/MM3 (1.0-4.8) Direct Bilirubin 0.7 MG/DL (0.0-0.2) Imaging Last Impressions GI Procedure 07/30/17 0000 Signed Impressions: Service Date/Time: Sunday, July 30, 2017 17:08 - CONCLUSION: ERCP as above. Osmany Landry MD Cholangiopancreatography MRI 07/30/17 0000 Signed Impressions: Service Date/Time: Sunday, July 30, 2017 15:07 - CONCLUSION: Distal CBD stone with pronounced biliary ductal dilatation Kar Jones MD Chest X-Ray [id number]/28/[id number] Signed Impressions: Service Date/Time: Friday, July 28, 2017 21:03 - CONCLUSION: No acute disease. There is no evidence of pneumonia. Toni Fuentes MD Abdomen/Pelvis CT [id number]/28/[id number] Signed Impressions: Service Date/Time: Friday, July 28, 2017 23:06 - CONCLUSION: 1. Status post cholecystectomy with prominent extrahepatic and mild intrahepatic ductal dilatation extending to the ampulla. Although post cholecystectomy reservoir effect may result in some extrahepatic ductal dilatation, overall degree of ductal prominence is atypical. Further evaluation may be performed with ERCP or MRCP as clinically warranted. 2. Prominent sigmoid diverticulosis with subtle perisigmoid inflammatory change, likely chronic. Differential considerations include developing diverticulitis. No abscess or perforation. 3. Small fat-containing periumbilical hernia with subtle stranding of the fat. Clinical correlation for strangulated hernia is recommended. Ry Gutierrez MD PE at Discharge GENERAL: Well-nourished, well-developed pleasant elderly female patient in [facility]. SKIN: Warm and dry. No rash. HEENT: Normocephalic. Atraumatic. Pupils equal and round. Mucous membranes pink and moist. CARDIOVASCULAR: Regular rate and rhythm. S1, S2 noted. No murmur appreciated. RESPIRATORY: No accessory muscle use. Clear to auscultation. Breath sounds equal bilaterally. GASTROINTESTINAL: Abdomen soft, nondistended, nontender today. Normoactive bowel sounds x4. MUSCULOSKELETAL: No obvious deformities. Extremities without clubbing, cyanosis , or edema. NEUROLOGICAL: Awake and alert. No obvious cranial nerve deficits. Motor grossly within normal limits. Normal speech. PSYCHIATRIC: Appropriate mood and affect; insight and judgment normal. Pt update on day of discharge The patient reports feeling much better again today. She denies any abdominal pain, nausea/vomiting, or diarrhea. She does complain of some constipation, has not had a BM in 2 days, but states this is normal for her. She agrees to taking Miralax but prefer to have bowel movement at home. She denies any fevers/ chills. She feels ready for discharge. Hospital Course CBD Stone/Ascending cholangitis/ Bacteremia: The pt has had abdominal pain over the past two weeks associated with N/V and fever. She has elevated LFTs. CT abdomen revealed: S/p cholecystectomy with prominent extrahepatic and mild intrahepatic ductal dilatation extending to the ampulla; Although post cholecystectomy reservoir effect may result in some extrahepatic ductal dilatation, overall degree of ductal prominence is atypical; Prominent sigmoid diverticulosis with subtle perisigmoid inflammatory change, likely chronic; Small fat-containing periumbilical hernia with subtle stranding of the fat. Gastroenterology was consulted. MRCP showed CBD stone. Patient undewent ERCP with stent placement on 07/30. LFTs started trending down and patient symptoms resolved. She was cleared for discharge by GI. Also during hospitalization, 11/27 Blood culture positive for Bacillus species not anthracis, she was placed on IV Vanco and Zosyn however repeat blood cultures negative x3days, suspect contaminant, d/junior antibiotics. The patient is stable for discharge home with [facility]. GI recommended follow up in 4weeks, and repeat ERCP for stent removal in 3months. Pt Condition on Discharge: Stable Discharge Disposition: Disch w/ Home Health Serv Discharge Time: > 30 minutes Discharge Instructions DIET: Follow Instructions for: Heart Healthy Diet Activities you can perform: Regular-No Restrictions Follow up Referrals: Gastroenterology - 1 Month @ [facility] with Tami Esparza MD PCP Follow-up - 2-3 Days Continued Medications: Alprazolam (Xanax) 0.25 Mg Tab 0.25 MG PO HS for anxiety, #12 TAB Aspirin (Aspirin Low Dose) 81 Mg Chew 81 MG CHEW DAILY, TAB 0 Refills Citalopram (Citalopram) 20 Mg Tab 20 MG PO DAILY for Control Depression, #30 TAB 0 Refills Furosemide (Furosemide) 20 Mg Tab 20 MG PO 3 TIMES WEEKLY, #30 TAB 0 Refills Gabapentin (Gabapentin) 300 Mg Cap 300 MG PO HS, #30 CAP 0 Refills Hydrocodone-Acetaminophen (Hydrocodone-Acetaminophen) 5-300 Mg Tab 1 TAB PO Q4H PRN for PAIN, TAB 0 Refills Levothyroxine (Synthroid) 125 Mcg Tab 125 MCG PO DAILY for Thyroid, #30 TAB 0 Refills Oyster Shell (Calcium) 500 Mg Tab Unknown Dose BID Pantoprazole (Protonix) 40 Mg Tab 40 MG PO DAILY for Reflux, #30 TAB 0 Refills Potassium Chloride (Potassium Chloride) 1 Pow Pow 10 MEQ PO THREE TIMES A WEEK Discontinued Medications: Azithromycin (Azithromycin) 250 Mg Tab 250 MG PO DAILY for Infection, #4 TAB 0 Refills Mere Andrade PA-C Aug 01, 2017 8:45 am
[2017-08-01] MEDS ORDERED: PHARMACY ORDERED LAB ONE (11:45)
== END 2017-08-01 09:45 | disposition home or self-care (01) ==
LOC: NEPE 20:25 → NEDA 07-29 00:21 → INTOOBSV 07-29 00:21 → NEPGCP 07-29 04:25
PROVIDERS: ADMIT Hospitalist; ATTEND Hospitalist
DX: K80.31 Calculus of bile duct with cholangitis, unspecified, with obstruction (principal); A41.9 Sepsis, unspecified organism; I48.91 Unspecified atrial fibrillation; E78.00 Pure hypercholesterolemia, unspecified; I11.0 Hypertensive heart disease with heart failure; I50.9 Heart failure, unspecified; J44.9 Chronic obstructive pulmonary disease, unspecified; Z85.43 Personal history of malignant neoplasm of ovary; K21.9 Gastro-esophageal reflux disease without esophagitis; R11.2 Nausea with vomiting, unspecified; E87.6 Hypokalemia; E03.9 Hypothyroidism, unspecified; K42.9 Umbilical hernia without obstruction or gangrene; K57.32 Diverticulitis of large intestine without perforation or abscess without bleeding; D64.9 Anemia, unspecified; Z90.49 Acquired absence of other specified parts of digestive tract
CPT/HCPCS: 00740; 43274; 71010; 74177; 74181; 74330; 76377; 80053; 80076; 81001; 82550; 82565; 83605; 83690; 83735; 84484; 85025; 87040; 87205; 93005; 96365; 96366; 96367; 96375; 96376; 97110; 97116; 97162; 99285; C1769; C2625; G0378; G8987; G8988; J1610; J2405; J2543; J2710; J3370; J3480; J7050; Q9967

== ENCOUNTER 2018-05-27 16:45 | Inpatient (IN) ==
[2018-05-27] MEDS ORDERED: Sodium Chlor 0.9% Inj 500 ML IV.SIG ONE (16:51)
[2018-05-27 17:17] LABS: Baso # (Auto) 0.1 th/mm3 (0.0-0.2); Baso % (Auto) 1.3 % (0.0-2.0); Eos % (Auto) 0.3 % (0.0-4.0); Hematocrit 37.1 % (35.0-46.0); Hemoglobin 12.5 gm/dL (11.6-15.3); Lymph # (Auto) 0.2 th/mm3 (1.0-4.8); Lymph % (Auto) 3.9 % (9.0-44.0); Mean Corpuscular HGB Conc 33.8 % (32.0-36.0); Mean Corpuscular Hemoglobin 30.7 pg (27.0-34.0); Mean Corpuscular Volume 90.9 fL (80.0-100.0); Mean Platelet Volume 6.5 fL (7.0-11.0); Mono # (Auto) 0.2 th/mm3 (0.0-0.9); Mono % (Auto) 3.7 % (0.0-8.0); Neut # (Auto) 3.7 th/mm3 (1.8-7.7); Neut % (Auto) 90.8 % (16.0-70.0); Platelet Count 144 th/mm3 (150-450); Red Blood Count 4.08 mil/mm3 (4.00-5.30); Red Cell Distribution Width 13.6 % (11.6-17.2); White Blood Count 4.2 th/mm3 (4.0-11.0)
[2018-05-27 17:18] LABS: Chloride 109 meq/L (98-107); Sodium 142 meq/L (136-145)
[2018-05-27 17:22] LABS: Albumin 3.2 g/dL (3.4-5.0); Anion Gap 10 meq/L (5-15); Blood Urea Nitrogen 13 mg/dL (7-18); Calcium 8.1 mg/dL (8.5-10.1); Carbon Dioxide 22.9 meq/L (21.0-32.0); Glucose,Random 95 mg/dL (74-106)
[2018-05-27 17:25] LABS: Alanine Aminotransferase 150 U/L (10-53); Aspartate Aminotransferase 379 U/L (15-37); Glomerular Filtration Rate 57 mL/min (>89)
[2018-05-27 17:27] LABS: Total Protein 6.6 g/dL (6.4-8.2)
[2018-05-27 17:28] LABS: Alkaline Phosphatase 240 U/L (45-117)
--- NOTE | 2018-05-27 17:30 | XR ---
EXAM DATE: 05/27/2018 5:27 PM EDT AGE/SEX: 87 years / Female INDICATIONS: Fever. CLINICAL DATA: This is the patient's initial encounter. Patient reports that signs and symptoms have been present for 1 day and indicates a pain score of Nonresponsive. MEDICAL/SURGICAL HISTORY: Non-responsive. Non-responsive. COMPARISON: [facility] – [place], CHEST SINGLE AP, 07/28/2017. . FINDINGS: Heart size enlarged. Tortuous aorta. No consolidation or effusion. No pneumothorax. Mild scoliosis. CONCLUSION: No acute findings. Mild scoliosis. Minimal basilar scarring. Electronically signed by: Osmany Landry MD 05/27/2018 5:29 PM EDT
[2018-05-27 17:36] LABS: Thyroid Stimulating Hormone 0.151 uIU/mL (0.358-3.740)
[2018-05-27 17:40] LABS: Clarity,Urine Clear (Clear); Color,Urine Yellow (Yellw/Straw); Glucose,Urine (UA) Negative (Negative); Leukocyte Esterase,Urine Negative (Negative); Nitrite,Urine Negative (Negative); PH,Urine 5.5 (5.0-8.5)
[2018-05-27 17:44] LABS: Bilirubin,Urine Negative (Negative)
[2018-05-27 17:49] LABS: Squamous Epithelial Cell,Urine 0-5 /hpf (0-5); WBC,Urine 0-5 /hpf (0-5)
[2018-05-27 17:57] LABS: Activated Partial Thrombo Time 23.8 sec (24.3-30.1); Creatine Kinase 42 U/L (26-192); INR 1.1 Ratio; Prothrombin Time 11.1 sec (9.8-11.6)
--- NOTE | 2018-05-27 18:20 | ED ---
HPI General Chief complaint: Neuro Symptoms/Deficit Stated complaint: POSS TIA Time Seen by Provider: 05/27/18 16:51 Source: patient and family Mode of arrival: EMS Limitations: no limitations History of Present Illness HPI narrative: Patient is a 87 year old female, brought in by EMS, after an episode of unresponsive and vomiting. Patient states she had some pain in her abdomen and then vomited. She says she still has some pain to her lower abdomen. Per daughter, she went into her room and saw her mother staring into space. She says that she did not respond to her, so she became worried. She then vomited and became responsive again. Per daughter, this happened when she had an infection in the past. Onset (ago): minute(s) (just prior to arrival) Location: abdomen Relieving factors: none Treatments prior to arrival: none Related Data Home Medications Medication Instructions Recorded Confirmed alprazolam [Xanax] 0.25 mg PO BID PRN 05/27/18 05/27/18 aspirin [Aspir-Low] 162 mg PO DAILY 05/27/18 05/27/18 escitalopram oxalate [Lexapro] 10 mg PO DAILY 05/27/18 05/27/18 furosemide [Lasix] 20 mg PO DAILY PRN 05/27/18 05/27/18 gabapentin 300 mg PO DAILY 05/27/18 05/27/18 hydrocodone-acetaminophen 0.5 mg PO BID PRN 05/27/18 05/27/18 levothyroxine 75 mcg PO DAILY 05/27/18 05/27/18 potassium chloride 40 meq PO DAILY PRN 05/27/18 05/27/18 Allergies Allergy/AdvReac Type Severity Reaction Status Date / Time codeine Allergy Severe NAUSEA Verified 05/27/18 17:08 hydromorphone Allergy Severe Itching Unverified 05/27/18 17:09 Sulfa (Sulfonamide Allergy Severe EYE Unverified 05/27/18 17:09 Antibiotics) SWELLING Penicillins Allergy Intermediate Rash Verified 05/27/18 17:09 morphine Allergy Mild Confusion Verified 05/27/18 17:10 Review of Systems Except as stated in HPI: all other systems reviewed are negative Constitutional Denies chills and Denies fever(s) ENT Denies headache(s) Cardiovascular Denies chest pain and Denies edema Respiratory Denies chest congestion, Denies dyspnea and Denies dyspnea on exertion Gastrointestinal Reports abdominal pain, Reports nausea and Reports vomiting Musculoskeletal Denies myalgias and Denies arthralgias Integumentary/Breasts Denies change in pigmentation and Denies wounds Neurologic Denies focal weakness [facility] Medical History Medical History Anxiety (Acute) Hx of fracture of femur (Acute) Neuropathy (Acute) Rectal prolapse (Acute) Thyroid disease (Acute) Surgical History Surgical History History of cholecystectomy (Acute) Social History Social History Substance History: No History of Abuse Second Hand Smoke Exposure: Yes Smoking Status: Never smoker How Often Do You Have a Drink Containing Alcohol: Never Recent Travel in [facility] within the Last 8 Weeks: No Recent Out of Country Travel within the Last 8 Weeks: No Immunization History Tetanus Immunization: <5 Years Hx Influenza Vaccine This Season: Yes Exam Narrative Exam Narrative: GENERAL: Awake and alert, in no acute distress. SKIN: Focused skin assessment warm/dry. No wounds or signs of infection. HEAD: Atraumatic. Normocephalic. EYES: Pupils equal and round and reactive. No scleral icterus. EOMI. ENT: Mucous membranes pink and moist. NECK: Trachea midline. No JVD. CARDIOVASCULAR: Regular rate and rhythm. No murmur appreciated. RESPIRATORY: No accessory muscle use. Clear to auscultation. Breath sounds equal bilaterally. GASTROINTESTINAL: Abdomen soft, nondistended. Diffusely tender to palpation, worse in the lower abdomen. No rebound or guarding. MUSCULOSKELETAL: No obvious deformities. No clubbing. No cyanosis. No edema. NEUROLOGICAL: Awake and alert. No obvious cranial nerve deficits. Motor grossly within normal limits. Normal speech. PSYCHIATRIC: Appropriate mood and affect; insight and judgment normal. Course Hospital Course: IV established, labs sent. Labs show a Bilirubin of 3.5, AST and ALT are elevated. Given IVF. CT head and abd/pelvis ordered. Reevaluation(s) Reevaluation #1: Patient resting comfortably, asking for water. She and family informed of results. CT head and abd/pelvis pending. Time: 18:20 Initial Documented Vital Signs Temperature 100.5 F H 05/27/18 16:51 Pulse Rate 102 H 05/27/18 16:51 Respiratory Rate 20 05/27/18 16:51 Blood Pressure 132/65 05/27/18 16:51 Pulse Oximetry 94 L 05/27/18 16:51 Last Documented Vital Signs Temperature 98.3 F 05/27/18 18:45 Pulse Rate 81 05/27/18 18:45 Respiratory Rate 18 05/27/18 18:45 Blood Pressure 122/50 L 05/27/18 18:45 Pulse Oximetry 98 05/27/18 18:45 Sign Out Sign Out Data: Patient Sign Out occurred on 05/27/18 at 19:21. Patient's care was discussed, and care was transferred from Sujata Teixeira MD to Darin Zuniga MD. Sign Out Comment: Follow up CT abd/pelvis Last updated by Sujata Teixeira MD at 05/27/18 18:59 Post-Handoff Eval: The patient's bilirubin, AST, and ALT are elevated. I reviewed the patient's EMR, the patient underwent MRCP and then stent placement in July 2017. The patient had a retained biliary stone at that time and was status post cholecystectomy. The patient's bilirubin level after that procedure did trend down and LFTs trended downward, however, bilirubin is now greater than 3 and AST and ALT are once again elevated. I examined the patient at bedside at 7:28 PM, she has epigastric and right upper quadrant abdominal pain. Patient may benefit from repeat MRCP. The patient has [employer], therefore, [facility] were paged for admission. I discussed the patient with Dr. Schroeder who agrees with admission. The patient will be covered with cefepime for possible underlying cholangitis. Medical Decision Making Lab Data Lab results reviewed: Yes I reviewed the patient's lab results. Result diagrams: 05/27/18 16:40 05/27/18 16:40 Lab Results 05/27/18 05/27/18 05/27/18 Range/Units 16:40 16:40 16:40 CBC w Diff Auto diff final WBC 4.2 (4.0-11.0) th/mm3 RBC 4.08 (4.00-5.30) mil/mm3 Hgb 12.5 (11.6-15.3) gm/dL Hct 37.1 (35.0-46.0) % MCV 90.9 (80.0-100.0) fL MCH 30.7 (27.0-34.0) pg MCHC 33.8 (32.0-36.0) % RDW 13.6 (11.6-17.2) % Plt Count 144 L (150-450) th/mm3 MPV 6.5 L (7.0-11.0) fL Neut % (Auto) 90.8 H (16.0-70.0) % Lymph % (Auto) 3.9 L (9.0-44.0) % [place] % (Auto) 3.7 (0.0-8.0) % Eos % (Auto) 0.3 (0.0-4.0) % Baso % (Auto) 1.3 (0.0-2.0) % Neut # (Auto) 3.7 (1.8-7.7) th/mm3 Lymph # (Auto) 0.2 L (1.0-4.8) th/mm3 [place] # (Auto) 0.2 (0.0-0.9) th/mm3 Eos # (Auto) 0.0 (0.0-0.4) th/mm3 Baso # (Auto) 0.1 (0.0-0.2) th/mm3 WBC Differential . PT 11.1 (9.8-11.6) sec INR 1.1 Ratio APTT 23.8 L (24.3-30.1) sec Sodium 142 (136-145) meq/L Potassium 3.0 L (3.5-5.1) meq/L Chloride 109 H (98-107) meq/L Carbon Dioxide 22.9 (21.0-32.0) meq/L Anion Gap 10 (5-15) meq/L BUN 13 (7-18) mg/dL Creatinine 0.93 (0.50-1.00) mg/dL Estimated GFR 57 L (>89) mL/min POC Glucose (68-110) mg/dl Random Glucose 95 (74-106) mg/dL Lactic Acid (0.4-2.0) mmol/L Calcium 8.1 L (8.5-10.1) mg/dL Total Bilirubin 3.5 H (0.2-1.0) mg/dL AST 379 H (15-37) U/L ALT 150 H (10-53) U/L Alkaline Phosphatase 240 H (45-117) U/L Total Creatine Kinase 42 (26-192) U/L Troponin I Less than 0.02 L (0.02-0.05) ng/mL Total Protein 6.6 (6.4-8.2) g/dL Albumin 3.2 L (3.4-5.0) g/dL TSH 0.151 L (0.358-3.740) uIU/mL Ur Collection Type Urine Color (Yellw/Straw) Urine Clarity (Clear) Urine pH (5.0-8.5) Ur Specific [place] (1.002-1.035) Urine Protein (Neg-Trace) mg/dL Urine Glucose (UA) (Negative) mg/dL Urine Ketones (Negative) mg/dL Urine Occult Blood (Negative) Urine Nitrate (Negative) Urine Bilirubin (Negative) Urine Urobilinogen (Less than 2) mg/dL Ur Leukocyte Esterase (Negative) Urine RBC (0-3) /hpf Urine WBC (0-5) /hpf Ur Squamous Epith Cells (0-5) /hpf Micro UA Comment 05/27/18 05/27/18 05/27/18 Range/Units 16:40 16:50 17:30 CBC w Diff WBC (4.0-11.0) th/mm3 RBC (4.00-5.30) mil/mm3 Hgb (11.6-15.3) gm/dL Hct (35.0-46.0) % MCV (80.0-100.0) fL MCH (27.0-34.0) pg MCHC (32.0-36.0) % RDW (11.6-17.2) % Plt Count (150-450) th/mm3 MPV (7.0-11.0) fL Neut % (Auto) (16.0-70.0) % Lymph % (Auto) (9.0-44.0) % [place] % (Auto) (0.0-8.0) % Eos % (Auto) (0.0-4.0) % Baso % (Auto) (0.0-2.0) % Neut # (Auto) (1.8-7.7) th/mm3 Lymph # (Auto) (1.0-4.8) th/mm3 [place] # (Auto) (0.0-0.9) th/mm3 Eos # (Auto) (0.0-0.4) th/mm3 Baso # (Auto) (0.0-0.2) th/mm3 WBC Differential PT (9.8-11.6) sec INR Ratio APTT (24.3-30.1) sec Sodium (136-145) meq/L Potassium (3.5-5.1) meq/L Chloride (98-107) meq/L Carbon Dioxide (21.0-32.0) meq/L Anion Gap (5-15) meq/L BUN (7-18) mg/dL Creatinine (0.50-1.00) mg/dL Estimated GFR (>89) mL/min POC Glucose 103 (68-110) mg/dl Random Glucose (74-106) mg/dL Lactic Acid 1.5 (0.4-2.0) mmol/L Calcium (8.5-10.1) mg/dL Total Bilirubin (0.2-1.0) mg/dL AST (15-37) U/L ALT (10-53) U/L Alkaline Phosphatase (45-117) U/L Total Creatine Kinase (26-192) U/L Troponin I (0.02-0.05) ng/mL Total Protein (6.4-8.2) g/dL Albumin (3.4-5.0) g/dL TSH (0.358-3.740) uIU/mL Ur Collection Type Clean catch Urine Color Yellow (Yellw/Straw) Urine Clarity Clear (Clear) Urine pH 5.5 (5.0-8.5) Ur Specific [place] 1.020 (1.002-1.035) Urine Protein Negative (Neg-Trace) mg/dL Urine Glucose (UA) Negative (Negative) mg/dL Urine Ketones Trace H (Negative) mg/dL Urine Occult Blood Small H (Negative) Urine Nitrate Negative (Negative) Urine Bilirubin Negative (Negative) Urine Urobilinogen 4.0 H (Less than 2) mg/dL Ur Leukocyte Esterase Negative (Negative) Urine RBC 4-15 H (0-3) /hpf Urine WBC 0-5 (0-5) /hpf Ur Squamous Epith Cells 0-5 (0-5) /hpf Micro UA Comment Culture not ind Imaging Data Radiologist's impression: ITS Impressions Chest X-Ray 05/27/18 16:51 CONCLUSION: No acute findings. Mild scoliosis. Minimal basilar scarring. Head CT 05/27/18 16:51 CONCLUSION: 1. No acute intracranial abnormalities. Abdomen/Pelvis CT 05/27/18 16:53 CONCLUSION: 1. There is colonic diverticulosis without evidence for diverticulitis. 2. Fat-containing periumbilical hernia, stable, 3. Placement of biliary stent since prior exam with persistent biliary ductal dilatation. 4. No acute findings within the abdomen or pelvis Discharge Plan Discharge Disposition Patient Disposition: 30 Still Patient Discharge Condition Condition: Stable Discharge Details Discharge Problem: Hyperbilirubinemia, Nonspecific elevation of levels of transaminase and lactic acid dehydrogenase [ldh] Physicians Team ED Provider: Darin Zuniga Primary Care Provider: Primary Care Cristal Morales Rxs /Orders / Referrals /Forms Prescriptions: No Action levothyroxine 75 mcg Tablet 75 mcg PO DAILY RF: 0 gabapentin 300 mg Capsule 300 mg PO DAILY RF: 0 escitalopram oxalate [Lexapro] 10 mg Tablet 10 mg PO DAILY RF: 0 hydrocodone-acetaminophen 5-325 mg Tablet 0.5 mg PO BID PRN (Reason: Pain) RF: 0 aspirin [Aspir-Low] 81 mg Tablet,Delayed Release (Dr/Ec) 162 mg PO DAILY RF: 0 alprazolam [Xanax] 0.25 mg Tablet 0.25 mg PO BID PRN (Reason: Anxiety) RF: 0 potassium chloride 40 mEq/15 mL Liquid 40 meq PO DAILY PRN (Reason: Edema) RF: 0 furosemide [Lasix] 20 mg Tablet 20 mg PO DAILY PRN (Reason: Edema) RF: 0 Discharge Interventions Interventions: Vital Signs Last Done: 05/27/18 18:45 Status ED Status: Ready for Discharge
[2018-05-27] MEDS ORDERED: Bisacodyl 10 MG Supp RECTAL PRN (19:41)
[2018-05-27] MEDS: Sod Chloride 0.9% Inj 1,000 ML IV.CONT SCH (20:53)
[2018-05-27] MEDS: ALPRAZolam 0.25 MG Tablet PO PRN (22:41)
[2018-05-28 06:25] LABS: Potassium 3.6 meq/L (3.5-5.1)
[2018-05-28 06:35] LABS: Baso % (Auto) 0.2 % (0.0-2.0); Eos % (Auto) 0.1 % (0.0-4.0); Hematocrit 34.1 % (35.0-46.0); Hemoglobin 11.1 gm/dL (11.6-15.3); Lymph # (Auto) 0.6 th/mm3 (1.0-4.8); Lymph % (Auto) 7.5 % (9.0-44.0); Mean Corpuscular HGB Conc 32.7 % (32.0-36.0); Mean Corpuscular Hemoglobin 30.3 pg (27.0-34.0); Mean Corpuscular Volume 92.8 fL (80.0-100.0); Mean Platelet Volume 7.4 fL (7.0-11.0); Mono # (Auto) 0.6 th/mm3 (0.0-0.9); Mono % (Auto) 6.5 % (0.0-8.0); Neut # (Auto) 7.4 th/mm3 (1.8-7.7); Neut % (Auto) 85.7 % (16.0-70.0); Platelet Count 125 th/mm3 (150-450); Red Blood Count 3.67 mil/mm3 (4.00-5.30); Red Cell Distribution Width 13.6 % (11.6-17.2); White Blood Count 8.6 th/mm3 (4.0-11.0)
[2018-05-28 07:19] LABS: Albumin 2.5 g/dL (3.4-5.0); Calcium 7.4 mg/dL (8.5-10.1); Carbon Dioxide 23.5 meq/L (21.0-32.0); Total Protein 5.6 g/dL (6.4-8.2)
[2018-05-28] MEDS: Gabapentin 300 MG Capsule PO SCH (08:33)
[2018-05-28] MEDS: ALPRAZolam 0.25 MG Tablet PO PRN (08:34)
[2018-05-28] MEDS ORDERED: Furosemide 20 MG Tablet PO PRN (11:17)
--- NOTE | 2018-05-28 11:17 | P.HPIM ---
History of Present Illness Primary Care Physician: No Primary Care Physician Chief Complaint: abdominal pain History of Present Illness: patient is a 87 y/o female who was admitted to this hospital in 2016 for abdominal pain and elevated LFT's. she underwent ERCP and biliary stent placement at the time. she presented last night with abdominal pain. she says that the pain was periumbilical and moderate in intensity. it was associated with nausea,emesis, fever and chills. she says that her daughter decided to bring her to the hospital after she couldn't wake her up last night. - Diagnosis (1) Elevated LFTs (2) Hypothyroidism (3) DVT prophylaxis - Inpatient Certification If this patient has been admitted as an Inpatient: I certify that the inpatient services were ordered in accordance with Medicare regulations governing the order. This includes certification that hospital inpatient services are reasonable and necessary and in the case of services not specified as inpatient-only under 42 CFR 419.22(n), that they are appropriately provided as inpatient services in accordance to with the 2-midnight benchmark under 43 CFR 412.3(e) Estimated Total Length of Stay (Days): 2 Plans for Post Hospital Care: Home Review of Systems All other systems reviewed negative except as stated in HPI PMFSH - History History Provided By: Patient - Medical History Medical History: Medical History (Last Reviewed 05/27/18 @ 18:18 by Sujata Teixeira MD) Anxiety Hx of fracture of femur Neuropathy Rectal prolapse Thyroid disease - Surgical History Surgical History: Surgical History (Last Reviewed 05/27/18 @ 18:18 by Sujata Teixeira MD) History of cholecystectomy - Tobacco History Second Hand Smoke Exposure: No Smoking Status: Never smoker - Alcohol History How Often Do You Have a Drink Containing Alcohol: Never - Substance Use History Substance History: No History of Abuse - Travel History Recent Travel in the [place] Within the Last 8 Weeks: No Recent Travel Out of the Country Within the Last 8 Weeks: No - Immunization History Tetanus Immunization: <5 Years Hx Influenza Vaccine This Season: Yes Medications and Allergies Active Medications: Active Medications Al Hydroxide/Mg Hydroxide (Milk Of [place]ger[place] Liq) 30 ml PO Q12H PRN PRN Reason: Mild Constipation Alprazolam (Xanax) 0.25 mg PO BID PRN PRN Reason: Anxiety Last Admin: 05/28/18 08:34 Dose: 0.25 mg Aspirin (Ecotrin) 162 mg PO DAILY [facility] Last Admin: 05/28/18 08:32 Dose: 162 mg Bisacodyl (Dulcolax Supp) 10 mg RECTAL DAILY PRN PRN Reason: SEVERE CONSITIPATION Escitalopram Oxalate (Lexapro) 10 mg PO DAILY [facility] Gabapentin (Neurontin) 300 mg PO DAILY [facility] Last Admin: 05/28/18 08:33 Dose: 300 mg Cefepime HCl 1,000 mg/ Sodium (Chloride) 100 mls @ 200 mls/hr IV.SIG Q8H [facility] Last Admin: 05/28/18 08:09 Dose: 200 mls/hr Metronidazole/Sodium Chloride (Flagyl 500 Mg Inj) 100 mls @ 100 mls/hr IV.SIG Q8H [facility] Last Admin: 05/28/18 08:09 Dose: 100 mls/hr Sodium Chloride (Ns Inj) 1,000 mls @ 65 mls/hr IV.CONT .[id number] [facility] Last Admin: 05/27/18 20:53 Dose: 65 mls/hr Lactulose (Lactulose Liq) 30 ml PO DAILY PRN PRN Reason: SEVERE CONSITIPATION Sennosides (Senokot) 17.2 mg PO Q12H PRN PRN Reason: Moderate Constipation Sodium Chloride (Ns Flush) 2 ml IV.FLUSH PRN PRN PRN Reason: FLUSH AFTER USING IV ACCESS Allergies Allergy/AdvReac Type Severity Reaction Status Date / Time hydromorphone Allergy Severe Itching Verified 05/27/18 20:17 Sulfa (Sulfonamide Allergy Severe EYE Verified 05/27/18 20:17 Antibiotics) SWELLING Penicillins Allergy Intermediate Rash Verified 05/27/18 17:09 codeine AdvReac Severe NAUSEA Verified 05/27/18 20:17 morphine AdvReac Mild Confusion Verified 05/27/18 20:17 Home Medications Medication Instructions Recorded Confirmed Type alprazolam [Xanax] 0.25 mg PO BID PRN 05/27/18 05/27/18 History aspirin [Aspir-Low] 162 mg PO DAILY 05/27/18 05/27/18 History escitalopram oxalate [Lexapro] 10 mg PO DAILY 05/27/18 05/27/18 History furosemide [Lasix] 20 mg PO DAILY PRN 05/27/18 05/27/18 History gabapentin 300 mg PO DAILY 05/27/18 05/27/18 History hydrocodone-acetaminophen 0.5 mg PO BID PRN 05/27/18 05/27/18 History levothyroxine 75 mcg PO DAILY 05/27/18 05/27/18 History potassium chloride 40 meq PO DAILY PRN 05/27/18 05/27/18 History Exam Vital signs: Vital Signs 05/27/18 16:51 05/27/18 18:45 05/27/18 19:45 Temperature 100.5 F H 98.3 F Pulse Rate 102 H 81 88 Respiratory Rate 20 18 18 Blood Pressure 132/65 122/50 L 130/66 Pulse Oximetry 94 L 98 95 05/27/18 19:47 05/27/18 20:15 05/27/18 21:05 Temperature Pulse Rate 65 Respiratory Rate Blood Pressure Pulse Oximetry 95 95 05/27/18 22:56 05/28/18 00:00 05/28/18 04:00 Temperature 98.5 F 98 F 98.1 F Pulse Rate 61 60 63 Respiratory Rate 20 16 16 Blood Pressure 123/60 110/54 L 135/58 L Pulse Oximetry 96 93 L 95 05/28/18 07:51 05/28/18 08:00 05/28/18 10:31 Temperature 97.6 F Pulse Rate 51 L Respiratory Rate 20 Blood Pressure 129/60 Pulse Oximetry 96 96 93 L Intake & Output 05/27/18 05/28/18 05/28/18 18:59 06:59 18:59 Intake Total 700 / 700 Balance 700 / 700 Weight 51.311 kg 50.8 kg Intake: IV 700 / 700 Maxipime Inj 1,000 MG In NS Inj 100 / 100 100 ML @ 200 mls/hr IV.SIG Q8H [facility] Rx#:[id number] Flagyl 500 MG Inj 100 ML @ 100 100 / 100 mls/hr IV.SIG Q8H [facility] Rx#: [id number] Other: # Voids 2 Weight On Admission 50.8 kg - Constitutional no acute distress - Routine HEENT Exam Head: Present: normocephalic Eye: Present: PERRL - Routine Neck Exam Present: supple, full ROM - Routine Respiratory Exam Present: CTA bilaterally - Routine Cardiovascular Exam Present: RRR - Routine Abdominal Exam Present: tenderness Comments: mild periumbilical tenderness. - Routine Extremities Exam Comments: no pedal edema. - Routine Neurological Exam Present: alert, oriented X3 Results - Labs CBC & Chem 7: 05/28/18 05:35 05/28/18 05:35 Labs: Short CBC 05/27/18 05/28/18 Range/Units 16:40 05:35 WBC 4.2 8.6 D (4.0-11.0) th/mm3 Hgb 12.5 11.1 L (11.6-15.3) gm/dL Hct 37.1 34.1 L (35.0-46.0) % Plt Count 144 L 125 L (150-450) th/mm3 BMP 05/27/18 05/28/18 16:40 05:35 Sodium 142 144 Potassium 3.0 L 3.6 Chloride 109 H 113 H Carbon Dioxide 22.9 23.5 BUN 13 13 Creatinine 0.93 0.81 Calcium 8.1 L 7.4 L* Cardiac Enzymes 05/27/18 Range/Units 16:40 Total Creatine Kinase 42 (26-192) U/L Troponin I Less than 0.02 L (0.02-0.05) ng/mL Liver Function 05/27/18 05/28/18 Range/Units 16:40 05:35 Total Bilirubin 3.5 H 2.8 H (0.2-1.0) mg/dL AST 379 H 173 H (15-37) U/L ALT 150 H 107 H (10-53) U/L Alkaline Phosphatase 240 H 185 H (45-117) U/L Albumin 3.2 L 2.5 L D (3.4-5.0) g/dL Urine 05/27/18 Range/Units 17:30 Urine Color Yellow (Yellw/Straw) Urine Clarity Clear (Clear) Urine pH 5.5 (5.0-8.5) Ur Specific [place] 1.020 (1.002-1.035) Urine Protein Negative (Neg-Trace) mg/dL Urine Glucose (UA) Negative (Negative) mg/dL - Imaging Impressions Chest X-Ray 05/27/18 16:51 CONCLUSION: No acute findings. Mild scoliosis. Minimal basilar scarring. Head CT 05/27/18 16:51 CONCLUSION: 1. No acute intracranial abnormalities. Abdomen/Pelvis CT 05/27/18 16:53 CONCLUSION: 1. There is colonic diverticulosis without evidence for diverticulitis. 2. Fat-containing periumbilical hernia, stable, 3. Placement of biliary stent since prior exam with persistent biliary ductal dilatation. 4. No acute findings within the abdomen or pelvis Caprini VTE Risk Assessment Caprini VTE Risk Assessment: Moderate/High Risk (score >= 2) Caprini Risk Assessment Model: Point Value = 1 Point Value = 2 Point Value = 3 Point Value = 5 Age 41-60 Minor surgery BMI > 25 kg/m2 Swollen legs Varicose veins or History of unexplained or recurrent spontaneous Oral contraceptives or hormone replacement Sepsis (< 1 month) Serious lung disease, including pneumonia (< 1 month) Abnormal pulmonary function Acute myocardial infarction Congestive heart failure (< 1 month) History of inflammatory bowel disease Medical patient at bed rest Age 61-74 Arthroscopic surgery Major open surgery (> 45 min) Laparoscopic surgery (> 45 min) Malignancy Confined to bed (> 72 hours) Immobilizing plaster cast Central venous access Age >= 75 History of VTE Family history of VTE Factor V Leiden Prothrombin [id number] Lupus anticoagulant Anticardiolipin antibodies Elevated serum homocysteine Heparin-induced thrombocytopenia Other congenital or acquired thrombophilia Stroke (< 1 month) Elective arthroplasty Hip, pelvis, or leg fracture Acute spinal cord injury (< 1 month) Prophylaxis Regimen: Total Risk Factor Score Risk Level Prophylaxis Regimen 0-1 Low Early ambulation 2 Moderate Order ONE of the following: *Sequential Compression Device (SCD) *Heparin 5000 units SQ BID 3-4 Higher Order ONE of the following medications: *Heparin 5000 units SQ TID *Enoxaparin/Lovenox 40 mg SQ daily (WT < 150 kg, CrCl > 30 mL/min) *Enoxaparin/Lovenox 30 mg SQ daily (WT < 150 kg, CrCl > 10-29 mL/min) *Enoxaparin/Lovenox 30 mg SQ BID (WT < 150 kg, CrCl > 30 mL/min) AND/OR *Sequential Compression Device (SCD) 5 or more Highest Order ONE of the following medications: *Heparin 5000 units SQ TID (Preferred with Epidurals) *Enoxaparin/Lovenox 40 mg SQ daily (WT < 150 kg, CrCl > 30 mL/min) *Enoxaparin/Lovenox 30 mg SQ daily (WT < 150 kg, CrCl > 10-29 mL/min) *Enoxaparin/Lovenox 30 mg SQ BID (WT < 150 kg, CrCl > 30 mL/min) AND *Sequential Compression Device (SCD) Assessment and Plan - Assessment (1) Elevated LFTs Code(s): R94.5 - Abnormal results of liver function studies Status: Acute Plan: s/p biliary stent placement last year. GI consulted- will monitor LFT's. (2) Hypothyroidism Code(s): E03.9 - Hypothyroidism, unspecified Status: Acute Plan: TSH is low; will decrease levothyroxine- TSH in 4 weeks. (3) DVT prophylaxis Status: Acute Plan: SCD's till seen by GI. H&P: Quality - VTE Deep Vein Thrombosis/Pulmonary Embolism Present on Admission: No
--- NOTE | 2018-05-28 13:05 | MR ---
EXAM DATE: 05/28/2018 12:50 PM EDT AGE/SEX: 87 years / Female INDICATIONS: Obstruction. Right upper quadrant pain for one day. CLINICAL DATA: This is the patient's initial encounter. Patient reports that signs and symptoms have been present for 1 day and indicates a pain score of 6/10. MEDICAL/SURGICAL HISTORY: Hypothyroidism. Cholecystectomy. Hysterectomy. Biliary stent and lef t hip. COMPARISON: [facility], CT ABDOMEN & PELVIS W CONTRAST, 05/27/2018. . TECHNIQUE: Multiplanar, multisequence images of the abdomen were obtained without contrast including dedicated cholangiographic images. FINDINGS: Examination is degraded by motion artifact. There is a stent within the common bile duct with a 14 mm stone is present within the common bile duct just above the level of the pancreas. Common bile duct itself measures up to 18 mm in diameter. No acute findings within the remainder of the study. CONCLUSION: 1. There is a 14 mm stone in the common bile duct just above the level of the pancreas with dilatati on of the common bile duct to 18 mm in diameter. A biliary stent is present as well. Electronically signed by: Osmany Landry MD 05/28/2018 1:04 PM EDT
--- NOTE | 2018-05-28 19:04 | P.CONGI ---
History of Present Illness Chief complaint: hyperbilirubinemia,elevated lfts,rule out retained History of Present Illness: Patient is an 87-year-old female who was admitted to the hospital on 27 May with progressively worsening symptoms of upper abdominal pain. Workup done in the ER showed presence of abnormal liver panel suggesting biliary obstruction. She had similar complaints last year in July and underwent an ERCP be for CBD stones. She had a biliary stent placement. Currently patient denies any history of fever chills nausea vomiting. She reports yellow discoloration of eyes however denies pruritus. There is no history of hematemesis or melena hematochezia heartburn dysphagia constipation diarrhea anorexia or weight loss Review of Systems Gastrointestinal: Reports abdominal pain PMFSH - History History Provided By: Patient - Medical History Medical History: Medical History (Last Reviewed 05/27/18 @ 18:18 by Sujata Teixeira MD) Anxiety Hx of fracture of femur Neuropathy Rectal prolapse Thyroid disease - Surgical History Surgical History: Surgical History (Last Reviewed 05/27/18 @ 18:18 by Sujata Teixeira MD) History of cholecystectomy - Tobacco History Second Hand Smoke Exposure: No Smoking Status: Never smoker - Alcohol History How Often Do You Have a Drink Containing Alcohol: Never - Substance Use History Substance History: No History of Abuse - Travel History Recent Travel in the [place] Within the Last 8 Weeks: No Recent Travel Out of the Country Within the Last 8 Weeks: No - Immunization History Tetanus Immunization: <5 Years Hx Influenza Vaccine This Season: Yes Medications and Allergies Active Medications: Active Medications Al Hydroxide/Mg Hydroxide (Milk Of Deon Liq) 30 ml PO Q12H PRN PRN Reason: Mild Constipation Alprazolam (Xanax) 0.25 mg PO BID PRN PRN Reason: Anxiety Last Admin: 05/28/18 08:34 Dose: 0.25 mg Aspirin (Ecotrin) 162 mg PO DAILY [facility] Last Admin: 05/28/18 08:32 Dose: 162 mg Bisacodyl (Dulcolax Supp) 10 mg RECTAL DAILY PRN PRN Reason: SEVERE CONSITIPATION Escitalopram Oxalate (Lexapro) 10 mg PO DAILY [facility] Gabapentin (Neurontin) 300 mg PO DAILY [facility] Last Admin: 05/28/18 08:33 Dose: 300 mg Cefepime HCl 1,000 mg/ Sodium (Chloride) 100 mls @ 200 mls/hr IV.SIG Q8H [facility] Last Admin: 05/28/18 08:09 Dose: 200 mls/hr Metronidazole/Sodium Chloride (Flagyl 500 Mg Inj) 100 mls @ 100 mls/hr IV.SIG Q8H [facility] Last Admin: 05/28/18 08:09 Dose: 100 mls/hr Sodium Chloride (Ns Inj) 1,000 mls @ 65 mls/hr IV.CONT .[id number] [facility] Last Admin: 05/27/18 20:53 Dose: 65 mls/hr Lactulose (Lactulose Liq) 30 ml PO DAILY PRN PRN Reason: SEVERE CONSITIPATION Levothyroxine Sodium (Synthroid) 50 mcg PO DAILY@0600 [facility] Potassium Chloride (K-Dur) 40 meq PO DAILY PRN PRN Reason: SEE LABEL COMMENTS Sennosides (Senokot) 17.2 mg PO Q12H PRN PRN Reason: Moderate Constipation Sodium Chloride (Ns Flush) 2 ml IV.FLUSH PRN PRN PRN Reason: FLUSH AFTER USING IV ACCESS Allergies Allergy/AdvReac Type Severity Reaction Status Date / Time hydromorphone Allergy Severe Itching Verified 05/27/18 20:17 Sulfa (Sulfonamide Allergy Severe EYE Verified 05/27/18 20:17 Antibiotics) SWELLING Penicillins Allergy Intermediate Rash Verified 05/27/18 17:09 codeine AdvReac Severe NAUSEA Verified 05/27/18 20:17 morphine AdvReac Mild Confusion Verified 05/27/18 20:17 Home Medications Medication Instructions Recorded Confirmed Type alprazolam [Xanax] 0.25 mg PO BID PRN 05/27/18 05/27/18 History aspirin [Aspir-Low] 162 mg PO DAILY 05/27/18 05/27/18 History escitalopram oxalate [Lexapro] 10 mg PO DAILY 05/27/18 05/27/18 History furosemide [Lasix] 20 mg PO DAILY PRN 05/27/18 05/27/18 History gabapentin 300 mg PO DAILY 05/27/18 05/27/18 History hydrocodone-acetaminophen 0.5 mg PO BID PRN 05/27/18 05/27/18 History levothyroxine 75 mcg PO DAILY 05/27/18 05/27/18 History potassium chloride 40 meq PO DAILY PRN 05/27/18 05/27/18 History Exam Vital signs: Vital Signs 05/27/18 19:45 05/27/18 19:47 05/27/18 20:15 Temperature Pulse Rate 88 Respiratory Rate 18 Blood Pressure 130/66 Pulse Oximetry 95 95 95 05/27/18 21:05 05/27/18 22:56 05/28/18 00:00 Temperature 98.5 F 98 F Pulse Rate 65 61 60 Respiratory Rate 20 16 Blood Pressure 123/60 110/54 L Pulse Oximetry 96 93 L 05/28/18 04:00 05/28/18 07:51 05/28/18 08:00 Temperature 98.1 F 97.6 F Pulse Rate 63 51 L Respiratory Rate 16 20 Blood Pressure 135/58 L 129/60 Pulse Oximetry 95 96 96 05/28/18 10:31 05/28/18 11:54 05/28/18 15:09 Temperature 97.2 F L 98 F Pulse Rate 54 L 53 L Respiratory Rate 20 20 Blood Pressure 132/64 134/62 Pulse Oximetry 93 L 96 96 Intake & Output 05/27/18 05/28/18 05/28/18 18:59 06:59 18:59 Intake Total 700 / 700 0 / 0 Balance 700 / 700 0 / 0 Weight 51.311 kg 50.8 kg Intake: IV 700 / 700 Maxipime Inj 1,000 MG In NS Inj 100 / 100 100 ML @ 200 mls/hr IV.SIG Q8H [facility] Rx#:[id number] Flagyl 500 MG Inj 100 ML @ 100 100 / 100 mls/hr IV.SIG Q8H [facility] Rx#: [id number] Oral 0 / 0 Other: # Voids 2 4 Weight On Admission 50.8 kg - Constitutional no acute distress, thin - Routine HEENT Exam Head: Present: normocephalic Eye: Present: EOMI, PERRL, conjunctival icterus ENT: Present: mucous membranes moist - Routine Neck Exam Present: supple - Routine Respiratory Exam Present: CTA bilaterally - Routine Cardiovascular Exam Present: murmur - Routine Abdominal Exam Present: soft, normoactive bowel sounds - Routine Neurological Exam Present: alert, oriented X3, moving all extremities Results - Labs CBC & Chem 7: 05/28/18 05:35 05/28/18 05:35 Labs: Laboratory Results - last 24 hr 05/27/18 05/28/18 05/28/18 20:00 05:35 05:35 CBC w Diff Auto diff final WBC 8.6 D RBC 3.67 L Hgb 11.1 L Hct 34.1 L MCV 92.8 MCH 30.3 MCHC 32.7 RDW 13.6 Plt Count 125 L MPV 7.4 Neut % (Auto) 85.7 H Lymph % (Auto) 7.5 L [place] % (Auto) 6.5 Eos % (Auto) 0.1 Baso % (Auto) 0.2 Neut # (Auto) 7.4 Lymph # (Auto) 0.6 L [place] # (Auto) 0.6 Eos # (Auto) 0.0 Baso # (Auto) 0.0 WBC Differential . Sodium 144 Potassium 3.6 Chloride 113 H Carbon Dioxide 23.5 Anion Gap 8 BUN 13 Creatinine 0.81 Estimated GFR 67 L Random Glucose 83 Lactic Acid 1.2 Calcium 7.4 L* Prot Corrected Calcium 8.2 L Total Bilirubin 2.8 H AST 173 H ALT 107 H Alkaline Phosphatase 185 H Total Protein 5.6 L D Albumin 2.5 L D - Imaging Impressions Abdomen/Pelvis CT 05/27/18 16:53 CONCLUSION: 1. There is colonic diverticulosis without evidence for diverticulitis. 2. Fat-containing periumbilical hernia, stable, 3. Placement of biliary stent since prior exam with persistent biliary ductal dilatation. 4. No acute findings within the abdomen or pelvis Cholangiopancreatography MRI 05/28/18 00:00 CONCLUSION: 1. There is a 14 mm stone in the common bile duct just above the level of the pancreas with dilatation of the common bile duct to 18 mm in diameter. A biliary stent is present as well. Assessment and Plan (1) Choledocholithiasis Status: Acute Code(s): K80.50 - Calculus of bile duct without cholangitis or cholecystitis without obstruction (2) Elevated LFTs Status: Acute Code(s): R94.5 - Abnormal results of liver function studies (3) Biliary obstruction Status: Acute Code(s): K83.1 - Obstruction of bile duct - Plan 1. IV Cipro 400 mg twice daily 2. Labs in the a.m. CBC CMP PT/INR 3. N.p.o. after midnight 4. Schedule ERCP in the a.m. at [facility]
--- NOTE | 2018-05-28 19:10 | ECG ---
Date Performed: 05/27/2018 Time Performed: 16:53:06 PTAGE: 87 years EKG: SINUS TACHYCARDIA WITH OCCASIONAL ECTOPIC PREMATURE COMPLEXES INFERIOR MYOCARDIAL INFARCTIO N MODERATE T-WAVE ABNORMALITY, CONSIDER ANTEROLATERAL ISCHEMIA PROLONGATION OF THE QT INTERVAL FOR TH E HEART RATE ABNORMAL ECG PREVIOUS TRACING : 07/28/2017 20.45 Since the prior tracing,there has been some slight variatio n in the non-specific ST-T wave changes. Present EKG is more convincing for an inferior wall infarct of indeterminate age. Otherwise no serial change. DOCTOR: Flora Perez Interpretating Date/Time 05/28/2018 19:10:10
[2018-05-29] MEDS ORDERED: Ciprofloxacin 400 MG/200 ML 400 MG/200 ML PIGGYBACK IV.SIG ONE
[2018-05-29] MEDS: Escitalopram 10 MG Tablet PO SCH ×2 (02:53→08:51)
[2018-05-29] MEDS: Sod Chloride 0.9% Inj 1,000 ML IV.CONT SCH ×2 (02:53→03:04)
[2018-05-29 06:17] LABS: Baso % (Auto) 0.2 % (0.0-2.0); Chloride 113 meq/L (98-107); Eos % (Auto) 0.5 % (0.0-4.0); Hematocrit 32.3 % (35.0-46.0); Hemoglobin 10.9 gm/dL (11.6-15.3); Lymph # (Auto) 0.6 th/mm3 (1.0-4.8); Lymph % (Auto) 11.4 % (9.0-44.0); Mean Corpuscular HGB Conc 33.8 % (32.0-36.0); Mean Corpuscular Hemoglobin 31.9 pg (27.0-34.0); Mean Corpuscular Volume 94.5 fL (80.0-100.0); Mean Platelet Volume 7.5 fL (7.0-11.0); Mono # (Auto) 0.3 th/mm3 (0.0-0.9); Mono % (Auto) 6.5 % (0.0-8.0); Neut # (Auto) 4.3 th/mm3 (1.8-7.7); Neut % (Auto) 81.4 % (16.0-70.0); Platelet Count 114 th/mm3 (150-450); Potassium 3.3 meq/L (3.5-5.1); Red Blood Count 3.42 mil/mm3 (4.00-5.30); Red Cell Distribution Width 14.1 % (11.6-17.2); Sodium 147 meq/L (136-145); White Blood Count 5.2 th/mm3 (4.0-11.0)
[2018-05-29 06:19] LABS: INR 1.2 Ratio; Prothrombin Time 11.7 sec (9.8-11.6)
[2018-05-29 06:21] LABS: Calcium 7.7 mg/dL (8.5-10.1)
[2018-05-29 06:22] LABS: Albumin 2.4 g/dL (3.4-5.0); Anion Gap 13 meq/L (5-15); Blood Urea Nitrogen 17 mg/dL (7-18); Carbon Dioxide 20.6 meq/L (21.0-32.0); Glucose,Random 64 mg/dL (74-106)
[2018-05-29 06:25] LABS: Alanine Aminotransferase 70 U/L (10-53); Aspartate Aminotransferase 73 U/L (15-37); Glomerular Filtration Rate Greater Than 89 mL/min (>89)
[2018-05-29 06:26] LABS: Total Protein 5.2 g/dL (6.4-8.2)
[2018-05-29 06:28] LABS: Alkaline Phosphatase 151 U/L (45-117)
[2018-05-29] MEDS: Levothyroxine 50 MCG Tablet PO SCH (06:38)
--- NOTE | 2018-05-29 07:41 | P.PN ---
Subjective Interval history: f/u; choledocholithiasis patient looks comfortable. no abdominal pain currently- no nausea/ vomiting. afebrile. Physical Exam Vital signs: Vital Signs 05/28/18 07:51 05/28/18 08:00 05/28/18 10:31 Temperature 97.6 F Pulse Rate 51 L Respiratory Rate 20 Blood Pressure 129/60 Pulse Oximetry 96 96 93 L 05/28/18 11:54 05/28/18 15:09 05/28/18 20:00 Temperature 97.2 F L 98 F 97.3 F L Pulse Rate 54 L 53 L 56 L Respiratory Rate 20 20 18 Blood Pressure 132/64 134/62 147/62 H Pulse Oximetry 96 96 96 05/29/18 00:00 05/29/18 04:00 Temperature 96.2 F L 96.2 F L Pulse Rate 52 L 52 L Respiratory Rate 18 18 Blood Pressure 142/78 H 141/75 H Pulse Oximetry 97 97 Intake & Output 05/28/18 05/29/18 05/29/18 18:59 06:59 18:59 Intake Total 1100 / 1100 1400 / 1400 Balance 1100 / 1100 1400 / 1400 Weight 50.8 kg Intake: IV 1100 / 1100 1400 / 1400 NS Inj 1,000 ML @ 65 mls/hr IV. 1000 / 1000 1000 / 1000 CONT .[id number] [facility] Rx#: [id number] Maxipime Inj 1,000 MG In NS Inj 100 / 100 200 / 200 100 ML @ 200 mls/hr IV.SIG Q8H [facility] Rx#:[id number] Flagyl 500 MG Inj 100 ML @ 100 200 / 200 mls/hr IV.SIG Q8H [facility] Rx#: [id number] Oral 0 / 0 0 / 0 Other: # Voids 4 3 - Constitutional no acute distress - Routine Respiratory Exam Present: CTA bilaterally - Routine Cardiovascular Exam Present: RRR - Routine Abdominal Exam Present: soft - Routine Neurological Exam Present: alert, oriented X3 Results - Labs CBC & Chem 7: 05/29/18 04:55 05/29/18 04:55 Laboratory Results - last 24 hr 05/29/18 05/29/18 05/29/18 04:55 04:55 04:55 CBC w Diff Auto diff final WBC 5.2 RBC 3.42 L Hgb 10.9 L Hct 32.3 L MCV 94.5 MCH 31.9 MCHC 33.8 RDW 14.1 Plt Count 114 L MPV 7.5 Neut % (Auto) 81.4 H Lymph % (Auto) 11.4 [place] % (Auto) 6.5 Eos % (Auto) 0.5 Baso % (Auto) 0.2 Neut # (Auto) 4.3 Lymph # (Auto) 0.6 L [place] # (Auto) 0.3 Eos # (Auto) 0.0 Baso # (Auto) 0.0 WBC Differential . PT 11.7 H INR 1.2 Sodium 147 H Potassium 3.3 L Chloride 113 H Carbon Dioxide 20.6 L Anion Gap 13 BUN 17 Creatinine 0.62 Estimated GFR Greater than 89 Random Glucose 64 L Calcium 7.7 L Total Bilirubin 1.0 AST 73 H ALT 70 H Alkaline Phosphatase 151 H Total Protein 5.2 L Albumin 2.4 L - Imaging Impressions Cholangiopancreatography MRI 05/28/18 00:00 CONCLUSION: 1. There is a 14 mm stone in the common bile duct just above the level of the pancreas with dilatation of the common bile duct to 18 mm in diameter. A biliary stent is present as well. Assessment and Plan - Assessment (1) Choledocholithiasis Code(s): K80.50 - Calculus of bile duct without cholangitis or cholecystitis without obstruction Status: Acute Plan: GI consulted- plan for ERCP; patient will be transferred to the main campus for the procedure- continue with antibiotics and pain control. (2) Elevated LFTs Code(s): R94.5 - Abnormal results of liver function studies Status: Acute Plan: s/p biliary stent placement last year. GI consulted as noted above. will monitor LFT's. (3) Hypothyroidism Code(s): E03.9 - Hypothyroidism, unspecified Status: Acute Plan: TSH is low; will decrease levothyroxine- TSH in 4 weeks. (4) DVT prophylaxis Status: Acute Plan: SCD's till seen by GI. - Plan Discharge Planning: when GI w/u completed and cleared by GI.
[2018-05-29] MEDS: Gabapentin 300 MG Capsule PO SCH (08:52)
[2018-05-30] MEDS: Ciprofloxacin 400 MG/200 ML 400 MG/200 ML PIGGYBACK IV.SIG SCH ×3 (00:52→15:16)
--- NOTE | 2018-05-30 08:26 | P.PN ---
Subjective Interval history: Follow-up choledocholithiasis. No abd pain . Tolerates hydrocodone. Hasn't tried oxycodone Physical Exam Vital signs: Vital Signs 05/29/18 08:50 05/29/18 12:45 05/29/18 16:00 Temperature 98.4 F 98.3 F Pulse Rate 57 L 58 L Respiratory Rate 17 17 Blood Pressure 169/74 H 155/68 H Pulse Oximetry 97 94 L 98 05/29/18 20:00 05/30/18 00:00 05/30/18 04:00 Temperature 98.0 F 98.8 F 98.2 F Pulse Rate 55 L 57 L 53 L Respiratory Rate 17 17 17 Blood Pressure 167/66 H 150/91 H 142/69 H Pulse Oximetry 97 96 97 Intake & Output 05/29/18 05/30/18 05/30/18 18:59 06:59 18:59 Intake Total 300 / 300 Balance 300 / 300 Weight 50.8 kg Intake: IV 300 / 300 Cipro 400 MG/200 ML Inj 400 mg 200 / 200 In 200 ml @ 200 mls/hr IV.SIG NOW ONE Rx#:[id number] Other: # Voids 3 # Bowel Movements 1 Narrative: GENERAL: Well-developed and well-nourished in no distress SKIN: Warm and dry. CARDIOVASCULAR: Regular rate and rhythm without murmurs, gallops, or rubs. RESPIRATORY: Breath sounds equal bilaterally. No accessory muscle use. GASTROINTESTINAL: Abdomen soft, slightly tender epigastric, nondistended. MUSCULOSKELETAL: No cyanosis, or edema. BACK: Nontender without obvious deformity. No CVA tenderness. Results - Labs CBC & Chem 7: 05/29/18 04:55 05/30/18 07:52 - Imaging ITS Impressions Chest X-Ray 05/27/18 16:51 CONCLUSION: No acute findings. Mild scoliosis. Minimal basilar scarring. Head CT 05/27/18 16:51 CONCLUSION: 1. No acute intracranial abnormalities. Abdomen/Pelvis CT 05/27/18 16:53 CONCLUSION: 1. There is colonic diverticulosis without evidence for diverticulitis. 2. Fat-containing periumbilical hernia, stable, 3. Placement of biliary stent since prior exam with persistent biliary ductal dilatation. 4. No acute findings within the abdomen or pelvis Cholangiopancreatography MRI 05/28/18 00:00 CONCLUSION: 1. There is a 14 mm stone in the common bile duct just above the level of the pancreas with dilatation of the common bile duct to 18 mm in diameter. A biliary stent is present as well. - Procedures For ERCP Assessment and Plan - Assessment (1) Choledocholithiasis Code(s): K80.50 - Calculus of bile duct without cholangitis or cholecystitis without obstruction Status: Acute Plan: GI consulted- plan for ERCP; Continue with antibiotics and pain control. Counseled regarding narcotics (2) Elevated LFTs Code(s): R94.5 - Abnormal results of liver function studies Status: Acute Plan: s/p biliary stent placement last year. GI consulted as noted above. Will monitor LFT's. (3) Hypothyroidism Code(s): E03.9 - Hypothyroidism, unspecified Status: Acute Plan: TSH is low; will decrease levothyroxine- TSH in 4 weeks. (4) DVT prophylaxis Status: Acute Plan: SCD's. Hold pharmacological prophylaxis pending GI evaluation - Plan Patient also has hypokalemia potassium 2.9. Will replace with 60 mEq p.o. 1. Check magnesium Anemia with no acute blood loss. Likely dilutional. Will monitor Discharge Planning: Home when cleared by GI
[2018-05-30 09:15] LABS: Alanine Aminotransferase 48 U/L (10-53); Albumin 2.5 g/dL (3.4-5.0); Alkaline Phosphatase 159 U/L (45-117); Anion Gap 11 meq/L (5-15); Aspartate Aminotransferase 33 U/L (15-37); Blood Urea Nitrogen 13 mg/dL (7-18); Calcium 8.2 mg/dL (8.5-10.1); Carbon Dioxide 21.1 meq/L (21.0-32.0); Chloride 113 meq/L (98-107); Glomerular Filtration Rate 64 mL/min (>89); Glucose,Random 102 mg/dL (74-106); Sodium 145 meq/L (136-145); Total Protein 5.5 g/dL (6.4-8.2)
[2018-05-30 09:20] LABS: Potassium 2.9 meq/L (3.5-5.1)
[2018-05-30] MEDS: Gabapentin 300 MG Capsule PO SCH (10:09)
[2018-05-30] MEDS: Escitalopram 10 MG Tablet PO SCH (10:09)
[2018-05-30] MEDS ORDERED: Naloxone Inj 0.4 MG/ML Vial IV.PUSH PRN (10:38)
--- NOTE | 2018-05-30 16:39 | FL ---
EXAM DATE: 05/30/2018 4:22 PM EDT AGE/SEX: 87 years / Female INDICATIONS: Stent placement. CLINICAL DATA: This is the patient's initial encounter. Patient reports that signs and symptoms have been present for 1 day and indicates a pain score of Nonresponsive. MEDICAL/SURGICAL HISTORY: Non-responsive. Non-responsive. COMPARISON: No prior exams available for comparison. FINDINGS: An ERCP was performed by the ordering physician. The images demonstrate dilatation of the biliary du ctal system with numerous filling defects in the bile duct. Displacement of the biliary stent. CONCLUSION: Biliary stent placement as above. Electronically signed by: Osmany Landry MD 05/30/2018 4:38 PM EDT
[2018-05-30] MEDS ORDERED: Succinylcholine Inj 100 MG/5 ML Syringe IV.PUSH ONE (17:31)
[2018-05-30] MEDS ORDERED: Lidocaine PF 1% Inj 5 ML Syringe INFILTRATN ONE (17:31)
[2018-05-30] MEDS ORDERED: Labetalol HCl Inj 100 MG/20 ML Vial IV.CONT ONE (17:31)
[2018-05-30 17:39] LABS: Magnesium 1.7 mg/dL (1.5-2.5)
[2018-05-30] MEDS: Levothyroxine 50 MCG Tablet PO SCH (18:34)
[2018-05-30] MEDS: ALPRAZolam 0.25 MG Tablet PO PRN (21:20)
[2018-05-31] MEDS: Levothyroxine 50 MCG Tablet PO SCH (06:52)
[2018-05-31 08:29] LABS: Baso % (Auto) 0.3 % (0.0-2.0); Hematocrit 33.5 % (35.0-46.0); Hemoglobin 11.2 gm/dL (11.6-15.3); Lymph # (Auto) 0.5 th/mm3 (1.0-4.8); Lymph % (Auto) 10.3 % (9.0-44.0); Mean Corpuscular HGB Conc 33.5 % (32.0-36.0); Mean Corpuscular Hemoglobin 30.6 pg (27.0-34.0); Mean Corpuscular Volume 91.3 fL (80.0-100.0); Mean Platelet Volume 7.7 fL (7.0-11.0); Mono # (Auto) 0.4 th/mm3 (0.0-0.9); Mono % (Auto) 8.2 % (0.0-8.0); Neut # (Auto) 3.8 th/mm3 (1.8-7.7); Neut % (Auto) 81.2 % (16.0-70.0); Platelet Count 133 th/mm3 (150-450); Red Blood Count 3.67 mil/mm3 (4.00-5.30); Red Cell Distribution Width 14.8 % (11.6-17.2); White Blood Count 4.6 th/mm3 (4.0-11.0)
[2018-05-31 09:08] LABS: Alanine Aminotransferase 46 U/L (10-53); Albumin 2.7 g/dL (3.4-5.0); Alkaline Phosphatase 163 U/L (45-117); Anion Gap 11 meq/L (5-15); Aspartate Aminotransferase 35 U/L (15-37); Blood Urea Nitrogen 9 mg/dL (7-18); Calcium 8.2 mg/dL (8.5-10.1); Carbon Dioxide 21.8 meq/L (21.0-32.0); Chloride 113 meq/L (98-107); Glomerular Filtration Rate 78 mL/min (>89); Glucose,Random 116 mg/dL (74-106); Magnesium 1.8 mg/dL (1.5-2.5); Potassium 3.8 meq/L (3.5-5.1); Sodium 146 meq/L (136-145); Total Protein 5.7 g/dL (6.4-8.2)
[2018-05-31] MEDS: Gabapentin 300 MG Capsule PO SCH (09:39)
[2018-05-31] MEDS: Escitalopram 10 MG Tablet PO SCH (09:39)
--- NOTE | 2018-05-31 10:06 | P.DCO ---
- Physical Therapy Order: Evaluate and treat, Improve ambulation, Strength and gait training - Certification I have seen patient Elisa Tolentino on 05/31/18. My clinical findings support the need for the requested home health care services because: Deconditioned with increased weakness I certify that my clinical findings support that this patient is homebound because: Need for psychosocial assistance
--- NOTE | 2018-05-31 10:20 | P.DS ---
Date of admission: 05/27/18 19:37 Primary care physician: No Primary Care Physician Brief History from admission: patient is a 87 y/o female who was admitted to this hospital in 2016 for abdominal pain and elevated LFT's. she underwent ERCP and biliary stent placement at the time. she presented last night with abdominal pain. she says that the pain was periumbilical and moderate in intensity. it was associated with nausea,emesis, fever and chills. she says that her daughter decided to bring her to the hospital after she couldn't wake her up last night. DS: Diagnosis - Discharge Diagnosis (1) Hypothyroidism Status: Chronic (2) Choledocholithiasis Status: Acute (3) Elevated LFTs Status: Resolved DS: Medications - Discharge Medications Prescriptions: levothyroxine [Synthroid] 50 mcg PO DAILY@0600 #30 tab ursodiol [Actigall] 600 mg PO BID #60 cap DS: Summary Hospital Course: (1) Choledocholithiasis Code(s): K80.50 - Calculus of bile duct without cholangitis or cholecystitis without obstruction Status: Acute Plan: S/p ERCPWith stent placement. Continue ursodiol. Discontinue antibiotics. Pain management. (2) Elevated LFTs Code(s): R94.5 - Abnormal results of liver function studies Status: Acute Plan: s/p biliary stent placement. Resolving. Will monitor LFT's. (3) Hypothyroidism Code(s): E03.9 - Hypothyroidism, unspecified Status: Acute Plan: TSH is low; will decrease levothyroxine- TSH in 4 weeks. (4) DVT prophylaxis Status: Acute Plan: SCD's. Patient also has hypokalemia potassium 2.9. Will replace with 60 mEq p.o. 1. Resolved Anemia with no acute blood loss. Likely dilutional. Stable. Will monitor - Time Spent with Patient Total time spent providing and/or coordinating discharge services: Greater than 30 minutes - Quality: VTE Deep Vein Thrombosis/Pulmonary Embolism Present on Admission: No Exam Vital signs: Vital Signs 05/30/18 16:00 05/30/18 16:12 05/30/18 16:30 Temperature 98 F 97 F L Pulse Rate 53 L 52 L 52 L Respiratory Rate 16 22 22 Blood Pressure 155/68 H 147/65 H 160/83 H Pulse Oximetry 95 99 05/30/18 16:40 05/30/18 20:10 05/30/18 21:30 Temperature 98 F 97.1 F L Pulse Rate 56 L 58 L 66 Respiratory Rate 22 17 Blood Pressure 148/67 H 159/69 H Pulse Oximetry 99 97 05/31/18 00:00 05/31/18 00:10 05/31/18 01:01 Temperature 97.3 F L Pulse Rate 55 L 53 L Respiratory Rate 17 16 Blood Pressure 158/68 H Pulse Oximetry 94 L 05/31/18 04:00 Temperature 97.6 F Pulse Rate 51 L Respiratory Rate 17 Blood Pressure 151/67 H Pulse Oximetry 94 L Intake & Output 05/30/18 05/31/18 05/31/18 18:59 06:59 18:59 Intake Total 500 / 500 0 / 0 Balance 500 / 500 0 / 0 Weight 50.9 kg Intake: Oral 0 / 0 Anesthesia Amount 500 / 500 Other: # Voids 2 Date of Last Bowel Movement 05/30/18 Narrative: GENERAL: This is a well-nourished, well-developed patient, in no apparent distress. CARDIOVASCULAR: Regular rate and rhythm without murmurs, gallops, or rubs. RESPIRATORY: Clear to auscultation. Breath sounds equal bilaterally. No wheezes , rales, or rhonchi. GASTROINTESTINAL: Abdomen soft, non-tender, nondistended. Normal active bowel sounds MUSCULOSKELETAL: Extremities without clubbing, cyanosis, or edema. NEURO: Alert & Oriented x4 to person, place, time, situation. Moves all ext x4 Results Procedures completed during hospitalization: For ERCP Labs on day of discharge: Labs from last 24 hours 05/31/18 05/31/18 05/30/18 07:30 07:30 07:52 WBC 4.6 RBC 3.67 L Hgb 11.2 L Hct 33.5 L MCV 91.3 MCH 30.6 MCHC 33.5 RDW 14.8 Plt Count 133 L MPV 7.7 Neut % (Auto) 81.2 H Lymph % (Auto) 10.3 [place] % (Auto) 8.2 H Eos % (Auto) 0.0 Baso % (Auto) 0.3 Neut # (Auto) 3.8 Lymph # (Auto) 0.5 L [place] # (Auto) 0.4 Eos # (Auto) 0.0 Baso # (Auto) 0.0 WBC Differential . Differential Comment Auto diff final Sodium 146 H 145 Potassium 3.8 D 2.9 L* Chloride 113 H 113 H Carbon Dioxide 21.8 21.1 Anion Gap 11 11 BUN 9 13 Creatinine 0.71 0.84 Estimated GFR 78 L 64 L Random Glucose 116 H 102 Calcium 8.2 L 8.2 L Magnesium 1.8 1.7 Total Bilirubin 0.6 0.6 AST 35 33 ALT 46 48 Alkaline Phosphatase 163 H 159 H Total Protein 5.7 L 5.5 L Albumin 2.7 L 2.5 L - Impressions ITS Impressions Chest X-Ray 05/27/18 16:51 CONCLUSION: No acute findings. Mild scoliosis. Minimal basilar scarring. Head CT 05/27/18 16:51 CONCLUSION: 1. No acute intracranial abnormalities. Abdomen/Pelvis CT 05/27/18 16:53 CONCLUSION: 1. There is colonic diverticulosis without evidence for diverticulitis. 2. Fat-containing periumbilical hernia, stable, 3. Placement of biliary stent since prior exam with persistent biliary ductal dilatation. 4. No acute findings within the abdomen or pelvis Cholangiopancreatography MRI 05/28/18 00:00 CONCLUSION: 1. There is a 14 mm stone in the common bile duct just above the level of the pancreas with dilatation of the common bile duct to 18 mm in diameter. A biliary stent is present as well. GI Procedure 05/30/18 00:00 CONCLUSION: Biliary stent placement as above. Discharge Plan - Discharge Disposition Patient Disposition: W/Home Health Service - Discharge Condition Condition: Stable - Discharge Order Discharge Orders: Discharge Order (Routine); Ordered 05/31/18 Ordered By: Bal Mendez - Physicians Team Primary Care Provider: Primary Care Cristal Morales Attending Provider: Bal Mendez Other Providers: En Fernando MD
--- NOTE | 2018-05-31 13:33 | P.DCO ---
- Home Health Nursing Order: Medical education, Medication education-adverse effect - Certification I have seen patient Elisa Tolentino on 05/31/18. My clinical findings support the need for the requested home health care services because: Deconditioned with increased weakness I certify that my clinical findings support that this patient is homebound because: Unsafe to leave home unassisted
--- NOTE | 2018-05-31 14:17 | P.PNGI ---
Subjective Interval history: Patient seen during rounds, feeling better .No nausea , vomiting, abdominal pain . Tolerating diet well. LFTS better . CBD stones s/p ERCP with stent placement and sphincterotomy . Physical Exam Vital signs: Vital Signs 05/30/18 16:00 05/30/18 16:12 05/30/18 16:30 Temperature 98 F 97 F L Pulse Rate 53 L 52 L 52 L Respiratory Rate 16 22 22 Blood Pressure 155/68 H 147/65 H 160/83 H Pulse Oximetry 95 99 05/30/18 16:40 05/30/18 20:10 05/30/18 21:30 Temperature 98 F 97.1 F L Pulse Rate 56 L 58 L 66 Respiratory Rate 22 17 Blood Pressure 148/67 H 159/69 H Pulse Oximetry 99 97 05/31/18 00:00 05/31/18 00:10 05/31/18 01:01 Temperature 97.3 F L Pulse Rate 55 L 53 L Respiratory Rate 17 16 Blood Pressure 158/68 H Pulse Oximetry 94 L 05/31/18 04:00 Temperature 97.6 F Pulse Rate 51 L Respiratory Rate 17 Blood Pressure 151/67 H Pulse Oximetry 94 L Intake & Output 05/30/18 05/31/18 05/31/18 18:59 06:59 18:59 Intake Total 500 / 500 0 / 0 Balance 500 / 500 0 / 0 Weight 50.9 kg Intake: Oral 0 / 0 Anesthesia Amount 500 / 500 Other: # Voids 2 Date of Last Bowel Movement 05/30/18 - Constitutional no acute distress - Routine HEENT Exam Head: Present: normocephalic Eye: Present: PERRL - Routine Cardiovascular Exam Present: RRR, S1, S2 - Routine Abdominal Exam Present: soft - Routine Neurological Exam Present: alert, oriented X3 - Routine Psychiatric Exam Present: normal affect Results - Labs CBC & Chem 7: 05/31/18 07:30 05/31/18 07:30 Laboratory Results - last 24 hr 05/30/18 05/31/18 05/31/18 07:52 07:30 07:30 WBC 4.6 RBC 3.67 L Hgb 11.2 L Hct 33.5 L MCV 91.3 MCH 30.6 MCHC 33.5 RDW 14.8 Plt Count 133 L MPV 7.7 Neut % (Auto) 81.2 H Lymph % (Auto) 10.3 [place] % (Auto) 8.2 H Eos % (Auto) 0.0 Baso % (Auto) 0.3 Neut # (Auto) 3.8 Lymph # (Auto) 0.5 L [place] # (Auto) 0.4 Eos # (Auto) 0.0 Baso # (Auto) 0.0 WBC Differential . Differential Comment Auto diff final Sodium 145 146 H Potassium 2.9 L* 3.8 D Chloride 113 H 113 H Carbon Dioxide 21.1 21.8 Anion Gap 11 11 BUN 13 9 Creatinine 0.84 0.71 Estimated GFR 64 L 78 L Random Glucose 102 116 H Calcium 8.2 L 8.2 L Magnesium 1.7 1.8 Total Bilirubin 0.6 0.6 AST 33 35 ALT 48 46 Alkaline Phosphatase 159 H 163 H Total Protein 5.5 L 5.7 L Albumin 2.5 L 2.7 L - Imaging Impressions GI Procedure 05/30/18 00:00 CONCLUSION: Biliary stent placement as above. - Procedures ERCP -CBD stone s/p sphincterotomy and stent placement Assessment and Plan (1) Hyperbilirubinemia Status: Acute Code(s): E80.6 - Other disorders of bilirubin metabolism Current Visit: Yes (2) Elevated LFTs Status: Resolved Code(s): R94.5 - Abnormal results of liver function studies (3) Choledocholithiasis Status: Acute Code(s): K80.50 - Calculus of bile duct without cholangitis or cholecystitis without obstruction (4) Biliary obstruction Status: Acute Code(s): K83.1 - Obstruction of bile duct - Attending Attestation Elevated LFTS secondary CBD stones-resolved CBD stones s/p ERCP with stent and sphincterotomy Abdominal pain secondary choledocholithiasis -resolved Recommendations ok to dc home from gi point ok to restart ASA fu gi in 2 weeks ERCP with stent removal in 8 weeks lfts next week return if fever , chill, abdominal pain Continue Ursodiol as recommended gi will sign off
== END 2018-05-31 17:32 | disposition home health service (06) ==
LOC: PHED 16:45 → PHEDA 19:37 → PH3 21:02 → N06 05-29 12:22
PROVIDERS: ADMIT Internal Medicine; ATTEND Internal Medicine